=== PATIENT | male | born 1950 | race Caucasian/White ===

== ENCOUNTER 2018-09-28 15:25 | Outpatient (REF) | payer MEDICARE, SELFPAY ==
--- NOTE | 2018-09-28 15:00 | SKI_PTH ---
PATIENT: Tristen Sahu Sr LOC: [facility] U#:[id number] AGE/SX: 68/M ROOM: RE09/28/[address]: Tobin Pinto DO : 1950 BED: DIS: 09/28/2018 SPEC #: [id number] RECD: 09/28/18 18:11 STATUS: MAG REQ #: [id number] NURIS: 09/28/18 15:[address]: Tobin Pinto DEPT: Surgical Specimen RECD BY: Cookie Ford Tissues: 1 - SKIN BIOPSY(SHAVE/PUNCH) Procedures: SKIN LEVEL 4 Comments: [id number]
== END 2018-09-28 15:45 ==
LOC: LBN 15:25
PROVIDERS: PCP Emergency Medicine; Visit Provider Emergency Medicine
DX: D22.5 Melanocytic nevi of trunk (principal)
CPT/HCPCS: 88305

== ENCOUNTER → 2018-12-13 13:32 | Outpatient (BNVA) | payer MEDICARE, SELFPAY | PROVIDERS: PCP Emergency Medicine; Referring Provider Emergency Medicine; Visit Provider Urology | DX: N36.8 Other specified disorders of urethra (principal) | CPT/HCPCS: 99203; 99214 ==

== ENCOUNTER 2019-08-04 22:09 | Emergency (ER) | payer MEDICARE, SELFPAY ==
[2019-08-04 22:15] VITALS: BP 131/69; PULSE 52; RESP 16; TEMP 36.4; O2SAT 100
--- NOTE | 2019-08-04 22:18 | ED.GENADUL_ITS ---
Discharge Plan Disposition Patient Disposition: HOME Condition: Stable Discharge Details Chief Complaint: HeadInjury Clinical Impression: Subarachnoid hemorrhage Primary Care Provider: Tobin Pinto ED Provider: Jaret Buenrostro Home Meds and New Rx's Prescriptions: No Action rosuvastatin [Crestor] 5 mg tablet 5 mg PO DAILY Qty: 90 RF: 3 Medical Decision Making 69 yo male with hx of hld comes in with cc of head laceration. He had a lot of alcohol tonight and tripped going outside and hit his head on the ground from standing and apparently had a several minute loc. He refused ambulance transfer and family brought him here. He arrives ambulatory and caox4 though does have smell of alcohol on his breath he is clinically sober. He denies headache, neck pain, chest jono, sob, and has full rom of the neck with no pain. He has a 4cm laceration to the right posterior scalp, no palpable skull fracture. Suspect fall due to etoh, given loc will obtain ct head. last tetanus within 5 years Pt has small subarachnoid on CT, remains hd stable with gcs of 15. [place]l [place] [facility] [place] Differential Diagnosis Differential Diagnosis: tbi, concussion, head laceration Imaging Data Radiologic Study: Attestation: I personally reviewed and interpreted this imaging study as follows: Imaging: CT Scan Radiologist's impression: Tiny focus of subarachnoid hemorrhage with a right medial frontal lobe sulcus . No evidence of mass effect. Lab Data Lab results reviewed: Yes I reviewed the patient's lab results. HPI General Mode of arrival: ambulatory . Date/Time Provider Initiated Documentation: 08/04/19 22:17 . Limitations to Documentation: no limitations . Information obtained by: patient and family . History of Present Illness 69 year old M presents to the emergency department with the chief complaint of head laceration, described as moderate, Quality is described as aching, and is localized to the head. Patient reports no radiation. and it has been constant. No relieving factors improve symptom(s), No exacerbating factors reported . Patient did receive the following treatments prior to arrival, none Related Data Home Medications Medication Instructions Recorded Confirmed rosuvastatin 5 mg tablet 5 mg PO DAILY #90 tab-cap 08/30/18 08/04/19 Previous Rx's Medication Instructions Recorded rosuvastatin 5 mg tablet 5 mg PO DAILY #90 tab-cap 08/30/18 Allergies Allergy/AdvReac Type Severity Reaction Status Date / Time No Known Allergies Allergy Verified 11/17/18 08:22 Review of Systems All systems reviewed & are unremarkable except as noted in HPI and below Constitutional Constitutional: Denies chills, Denies fever(s) and Denies weakness Cardiovascular Cardiovascular: Denies chest pain and Denies dyspnea Respiratory Respiratory: Denies cough and Denies dyspnea Gastrointestinal Gastrointestinal: Denies abdominal pain, Denies nausea and Denies vomiting Musculoskeletal Musculoskeletal: Denies joint swelling Neurologic Neurologic: Denies weakness [facility] Medical History (Updated 09/28/18 @ 15:04 by Tobin Pinto DO) Lumbago of lumbar region with sciatica (Acute) Surgical History (Updated 08/28/17 @ 13:26 by Lexi Leary) Colonoscopy - MAC (08/21/17) Family History (Updated 09/29/18 @ 10:08 by Saud Nails) Mother No problems noted. Father No problems noted. Sister No problems noted. Sister No problems noted. Brother , 55 Heart disease Maternal Grandfather , 76 No problems noted. Paternal Grandfather , 80 No problems noted. Maternal Grandmother , 90 No problems noted. Paternal Grandmother No problems noted. Son No problems noted. Son No problems noted. Daughter No problems noted. Daughter No problems noted. Social History (Updated 09/29/18 @ 10:06 by Saud Nails) Smoking/Tobacco Use Status: Current-Occasional Tobacco Type: cigarettes Alcohol Intake: current Alcohol Intake frequency: a few times a month Drug use: Occasionally Substance use type: marijuana Household members: spouse Housing: house current occupation: [employer] Pets and animals: Yes Pets and animals: cat(s) and dog(s) Sexually active: Yes Do you think of yourself as: straight/heterosexual Current gender identity: male What is your relationship status?: How often do you talk on the phone with friends or family?: three or more times per week How often do you get together with friends or relatives?: three or more times per week How often do you attend evangelical or nondenominational services?: decline to answer Do you belong to any clubs or organized social groups?: no Panel score (0-1 are the most socially isolated patients): 2 Frequency: daily [place]/Jainism: Spiritism Special angeles needs: No Do you feel safe at home: Yes Do you feel safe in your relationship?: Yes Exam Const General: no acute distress Orientation: alert HENMT Head: no palpable skull fracture Ears: external ears normal General nose exam: external nose normal Mouth: moist mucous membranes Eyes General: appearance normal, both eyes and all related structures Neck Neck: normal visual inspection Resp Effort & Inspection: normal respiratory effort and able to speak in complete se ntences Cardio Rate: regular rate Skin General skin exam: no rashes or lesions noted Neuro General: alert and oriented x3 Extrem General: normal to inspection Psych Mental Status: mental status grossly normal
--- NOTE | 2019-08-04 22:42 | DI.CT_ITS ---
EXAM: CT HEAD WO CLINICAL HISTORY: fall, loc COMPARISON: HEAD WITHOUT CONTRAST from 10/01/2015 FINDINGS: There is normal de la garza-white matter differentiation. There is an area of increased density in the medi al aspect of the right frontal lobe (series 2, image 21). This is suspicious for a small subarachnoi d hemorrhage. No other intracranial hemorrhage is seen. There is no acute midline shift or mass eff ect. Ventricles are intact. The basilar cisterns are patent. There is no evidence of a calvarial f racture. There are findings of chronic sinusitis. No fluid levels are seen in the visualized parana daina sinuses. The mastoid air cells are well pneumatized. There is a scalp hematoma overlying the po sterior right parietal bone. IMPRESSION: 1. Small subarachnoid hemorrhage in the medial aspect of the right frontal lobe. No associated mass effect. 2. Right parietal scalp hematoma.
--- NOTE | 2019-08-04 22:57 | DI.VRAD_ITS ---
Addendum created by Maida Lynn MD on 08/04/2019 11:00:33 PM EST Findings were discussed with MONICA Lara at the 11:00 p.m. EST. Initial report created on 08/04/2019 10:57:32 PM EST PROCEDURE INFORMATION: Exam: CT Head Without Contrast Exam date and time: 08/04/2019 10:40 PM Age: 69 years old Clinical history: Injury or trauma; Fall; Initial encounter TECHNIQUE: Imaging protocol: Computed tomography of the head without contrast. COMPARISON: CT HEAD WITHOUT CONTRAST 10/01/2015 7:13 PM FINDINGS: There is a laceration and contusion of the right parietal scalp. No fracture. Generalized volume loss. There is atherosclerotic calcification in the internal carotid arteries . There is a tiny focus of subarachnoid hemorrhage in a medial right frontal lobe sulcus, image 21 of series 2. Ventricular size is concordant with degree of volume loss. Visualized intraorbital soft tissues are normal. The sinuses are well-aerated. IMPRESSION: Laceration and contusion of the right parietal scalp without fracture. Tiny focus of subarachnoid hemorrhage with a right medial frontal lobe sulcus . No evidence of mass effect. Dictated and Authenticated by: Maida Lynn MD. Ordering:MAURO Ryagoza MD
[2019-08-04 23:20] VITALS: BP 127/72; PULSE 57; RESP 18; O2SAT 96
[2019-08-04 23:33] LABS: Abs Immature Grans 0.05 k/cumm (0.0-0.09); Absolute Basophil Count 0.02 k/cumm (0.0-0.2); Absolute Eosinophil Count 0.02 k/cumm (0.0-0.7); Absolute Lymphocyte Count 1.38 k/cumm (1.2-3.4); Absolute Monocyte Count 0.76 k/cumm (0.11-0.7); Absolute Neutrophil Count 14.35 k/cumm (1.2-6.7); Basophils % 0.1; Eosinophils % 0.1; HGB 16.3 g/dL (13.5-17.5); Immature Grans % 0.3; Lymphocytes % 8.3; Mean Corp. HGB Concentration 32.6 g/dL (32.0-36.0); Mean Corpuscular Hemoglobin 29.2 pg (27.0-33.0); Mean Corpuscular Volume 89.6 fL (80-95); Mean Platelet Volume 10.2 fL (8.0-11.0); Monocytes % 4.6; Neutrophils % 86.6; Platelet Count 215 x1000/uL (130-400); RBC 5.58 m/cumm (4.50-6.00); RBC Distribution Width 14.4 % (11.8-14.1); White Blood Cell Count 16.57 k/cumm (4.4-10.8)
[2019-08-04 23:47] LABS: INR 0.9 (0.9-1.1); Prothrombin Time 9.3 sec (9.3-11.0)
[2019-08-04 23:55] LABS: ALT 41 U/L (16-63); AST 26 U/L (15-37); Albumin 4.4 g/dL (3.4-5.0); Alkaline Phosphatase 55 U/L (46-116); Anion Gap 7.7 mmol/L (3-11); BUN 15 mg/dL (7-18); Bilirubin, Total 0.3 mg/dL (0.2-1.0); CO2 31.3 mmol/L (21.0-32.0); CREATININE 1.08 mg/dL (0.70-1.30); Calcium 8.7 mg/dL (8.5-10.1); Chloride 105 mmol/L (98-107); ETHANOL BLOOD 150.7 mg/dL (<3); Glucose 108 mg/dL (74-106); Potassium 3.9 mmol/L (3.5-5.1); Sodium 144 mmol/L (136-145); Total Protein 7.9 g/dL (6.4-8.2)
--- NOTE | 2019-08-05 00:15 | NUR.NOTE ---
Assumed care of pt, report from SEAMUS Rea. Pt sleeping, even, unlabored resp. Easily arousable to voice. Firm equal hand grasps, answering questions appropriately. Son at bedside.
--- NOTE | 2019-08-05 01:21 | NUR.NOTE ---
Awaiting transport [place] [facility] [place]. Easily arousable to voice.
[2019-08-05 01:31] VITALS: BP 100/69; PULSE 59; RESP 16; O2SAT 98
--- NOTE | 2019-08-05 01:53 | NUR.NOTE ---
[place] SEAMUS [place] [facility] [place] with all belongings.
== END 2019-08-05 01:35 | disposition short-term general hospital (02) ==
PROVIDERS: Emergency Provider Emergency Medicine; PCP Emergency Medicine
DX: S06.6X9A Traumatic subarachnoid hemorrhage with loss of consciousness of unspecified duration, initial encounter (principal); S01.01XA Laceration without foreign body of scalp, initial encounter; F10.120 Alcohol abuse with intoxication, uncomplicated; Y90.6 Blood alcohol level of 120-199 mg/100 ml; R40.2412 Glasgow coma scale score 13-15, at arrival to emergency department
CPT/HCPCS: 12002; 36415; 80053; 86850; 86900; 86901; 99285; 70450; 80320; 83735; 85025; 85610; 85730; L0172

== ENCOUNTER 2019-08-12 03:09 | Outpatient (CLI) | payer MEDICARE, SELFPAY ==
--- NOTE | 2019-08-12 12:50 | DI.CT_ITS ---
EXAM: CT HEAD WO CT HEAD WO CLINICAL HISTORY: subdural hemorrhage, I60.9. subdural hemorrhage, I60.9 TECHNIQUE: Imaging Protocol: Axial computed tomography images with coronal and sagittal reformatted images were created and reviewed COMPARISON: CT HEAD WO from 08/04/2019 FINDINGS: The ventricular system is normal in appearance. No evidence of acute intracranial hemorrhage, mass effect, or midline shift. The orbital structures are unremarkable. The temporal bone structures appear intact. Calvarium: Normal. Visualized Paranasal sinuses/Mastoids: Clear. IMPRESSION: Normal cranial CT. The previously described small focus of presumed subarachnoid hemorrhage para mi dline in right frontal lobe has resolved since prior CT of 08/04/2019. DATA REPOSITORY: All CT scans at this facility are submitted to the National Radiology Data Registry (NRDR) Dose Index Registry (DIR) with the [employer] (ACR). RADIATION OPTIMIZATION: All CT scans at this facility use at least one of these dose optimization te chniques: automated exposure control; mA and/or kV adjustment per patient size (includes targeted exa ms where dose is matched to clinical indication); or iterative reconstruction.
== END 2019-08-12 03:29 ==
PROVIDERS: PCP Emergency Medicine; Visit Provider Emergency Medicine
DX: I60.9 Nontraumatic subarachnoid hemorrhage, unspecified (principal); Z09 Encounter for follow-up examination after completed treatment for conditions other than malignant neoplasm
CPT/HCPCS: 70450

== ENCOUNTER 2019-08-19 05:56 | Emergency (ER) | payer MEDICARE, SELFPAY ==
[2019-08-19] VITALS (16 sets, daily range): BP systolic 110–151; BP diastolic 61–86; PULSE 49–59; RESP 13–23; TEMP 36.6–37.4; O2SAT 94–98
--- NOTE | 2019-08-19 06:07 | ED.GENADUL_ITS ---
Discharge Plan Disposition Patient Disposition: HOME Condition: Improving Discharge Details Chief Complaint: Chest Pain Clinical Impression: Atypical chest pain Primary Care Provider: Tobin Pinto ED Provider: Trudi Ramírez Home Meds and New Rx's Prescriptions: Continued rosuvastatin [Crestor] 5 mg tablet 5 mg PO DAILY Qty: 90 RF: 3 Discharge Instructions Instructions: Chest Pain (ED) Additional Instructions: Call your primary care doctor today to schedule follow-up appointment for reevaluation within the next week and for referral to outpatient stress testing if symptoms persist. Alternate Tylenol and Motrin as needed and directed for pain. You can also continue to try Pepcid, Prilosec or Nexium [id number] as well as Lidoderm patches [id number] as needed. Return to the emergency department if you develop any worsening or concerning symptoms. Discharge Data Discharge Physician: Trudi Ramírez Medical Decision Making <Jaret Buenrostro MD - Last Filed: 08/19/19 07:34> 69 yo male with hx of hld, intermittent smoker, who had an ICH after a fall 2 weeks ago that was managed nonoperatively comes in with constant chest aching and pressure since last night that is nonradiating and no diaphoresis, n/v or abdominal or back pain. Denies any new falls and no headaches. He has no leg swelling, calf pain or pain with deep breaths and no hypoxia or tachycardiaa so doubt PE. Heart score is 3, will send troponin. He apparently had a CT of his chest at [facility] [place] and it showed a thoracic aneurysm, will obtain CT to eval for this vs dissection pt pain improved with asa, labs and imaging negative other than known aneurysm. Will repeat troponin and ecg and if negative feel he can be d/c'd and f/u with pcp within a week. Pt will be signed out to Dr. Ramírez pending repeat troponin Differential Diagnosis Differential Diagnosis: acs, chest wall pain, dissection Medical Records Medical records reviewed: Yes I reviewed the patient's medical records. Lab Data Lab results reviewed: Yes I reviewed the patient's lab results. ECG Data Attestation: I personally reviewed and interpreted this ECG (s) as follows: Prior ECG tracings: not available for review Interpretation: sinus bradycardia, rate of 54, pr 170, no acute st t wave ischemic findings <Trudi J Bugbee, DO - Last Filed: 08/19/19 12:47> 0800 -- Please see Dr. Buenrostro's note for initial presentation and plan. Pt is a 69yo M w/ a h/o hyperlipidemia who presents for substernal chest pain that awoke him for sleep at 1030pm last night. Pain has been intermittent, 6/10 at its worst, worse with deep breath and currently 4/10. Also admits to some dizziness which he has had intermittently since his head injury while intoxicated that caused small subarachnoid hemorrhage 2 weeks ago that has resolved on ct head 1 week ago. He was transferred to [facility] at that time and also had a CT chest which incidentally noted a 4cm thoracic aneursym. Labs and imaging reviewed. White blood cell count 14. Troponin negative. CT chest notes 3.9 cm stable thoracic aneurysm but no evidence of dissection. EKG noted a rate of 54, sinus with no acute ST ischemic changes. Case endorsed to follow-up on repeat troponin and EKG at 9:10 AM this morning. Per Dr. Buenrostro, if negative feels that patient is appropriate for discharge to home. Upon my assessment, patient still complaining of anterior chest pain. His chest is nontender. He has significant right upper quadrant tenderness but with normal liver panel. Repeat EKG unremarkable. Will obtain a gallbladder ultrasound. 1230 --delay in disposition due to critical patient in ED. Repeat troponin and EKG negative. Patient additionally given Pepcid, GI cocktail, Toradol and Lidoderm patches and has complete relief of pain. Patient is requesting to go home. Patient advised to avoid possible triggers of heartburn or GERD and continue to alternate Tylenol and Motrin and Lidoderm patches as needed. He was also advised to take [id number] Nexium, Pepcid or Prilosec as directed for the next 2 weeks. He was advised to call his primary care doctor today to schedule a follow-up appointment for reevaluation within the next week and for referral for outpatient stress testing if symptoms persist or worsen. Usual and customary return precautions given prior to discharge. Medical Records Medical records reviewed: Yes I reviewed the patient's medical records. Imaging Data Radiologic Study: Radiologist's impression: CT THORAX CTA CLINICAL HISTORY: chest pain known thoracic aneurysm TECHNIQUE: The exam was performed according to the usual protocol. COMPARISON: CTA BRAIN from 10/19/2015 FINDINGS: CT angiography of the chest was bolus infusion of 100 cc of Omnipaque 350. Images obtained through the upper abdomen show small hiatal hernia and unremarkable appearance of visualized portions of liver, spleen, pancreas, adrenals and left kidney. The pulmonary arteries are not well opacified. No central embolus identified. Thoracic aorta is ectatic in its ascending portion at 40 millimeters with no evidence of dissection or other abnormality. Major branch vessels appear intact. No mediastinal or hilar adenopathy. Lungs are clear. No pleural effusion or pneumothorax. Tracheobronchial tree appears intact. 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 No central pulmonary embolus identified, peripheral pulmonary arteries not well visualized due to under opacification. US ABDOMEN LIMITED CLINICAL HISTORY: RUQ abd pain, tenderness, r/o acute cholecystitis TECHNIQUE: Ultrasound performed using standard protocol. COMPARISON: No exams were available for comparison FINDINGS: Visualized liver parenchyma is normal in appearance. No evidence of cholelithiasis or biliary dilatation. Negative sonographic Caceres sign. Pancreas appears intact as visualized. Right kidney unremarkable in appearance with no hydronephrosis or nephrolithiasis. Abdominal aorta ectatic at 29 millimeters in the superior-most portion, mid to distal abdominal aorta nonvisualized. IVC of grossly normal diameter is seen. IMPRESSION: No evidence of cholelithiasis or cholecystitis Lab Data Lab results reviewed: Yes I reviewed the patient's lab results. Labs: Laboratory Tests Range/Units 08/19/19 08/19/19 08/19/19 06:10 06:10 06:10 WBC (4.4-10.8) k/cumm 14.34 H RBC (4.50-6.00) m/cumm 5.24 Hgb (13.5-17.5) g/dL 15.5 Hct (40.0-50.0) % 47.4 MCV (80-95) fL 90.5 MCH (27.0-33.0) pg 29.6 MCHC (32.0-36.0) g/dL 32.7 RDW (11.8-14.1) % 14.3 H Plt Count (130-400) x1000/uL 272 MPV (8.0-11.0) fL 10.3 Immature Gran % 0.6 Neutrophils % 78.0 Lymphocytes % 13.8 Monocytes % 6.4 Eosinophils % 1.0 Basophils % 0.2 Absolute Neutrophils (1.2-6.7) k/cumm 11.19 H Absolute Lymphocytes (1.2-3.4) k/cumm 1.98 Absolute Monocytes (0.11-0.7) k/cumm 0.92 H Absolute Eosinophils (0.0-0.7) k/cumm 0.14 Absolute Basophils (0.0-0.2) k/cumm 0.03 PT (9.3-11.0) sec 9.3 INR (0.9-1.1) 0.9 APTT (21.0-31.4) sec 24.5 Sodium (136-145) mmol/L 144 Potassium (3.5-5.1) mmol/L 4.5 Chloride (98-107) mmol/L 105 Carbon Dioxide (21.0-32.0) mmol/L 30.0 Anion Gap (3-11) mmol/L 9.0 BUN (7-18) mg/dL 18 Creatinine (0.70-1.30) mg/dL 1.01 Estimated GFR/1.73 m2 (mL/min/1.73m2) >= 60.00 Glucose (74-106) mg/dL 98 Calcium (8.5-10.1) mg/dL 8.6 Magnesium (1.8-2.4) mg/dL 1.8 Total Bilirubin (0.2-1.0) mg/dL 0.3 AST (15-37) U/L 31 ALT (16-63) U/L 58 Alkaline Phosphatase (46-116) U/L 60 Troponin I (<0.06) ng/Ml < 0.05 NT-Pro-B Natriuret Pep (<300) pg/mL 57 Total Protein (6.4-8.2) g/dL 7.4 Albumin (3.4-5.0) g/dL 3.6 Lipase (73-393) U/L 95 Range/Units 08/19/ 09:00 WBC (4.4-10.8) k/cumm RBC (4.50-6.00) m/cumm Hgb (13.5-17.5) g/dL Hct (40.0-50.0) % MCV (80-95) fL MCH (27.0-33.0) pg MCHC (32.0-36.0) g/dL RDW (11.8-14.1) % Plt Count (130-400) x1000/uL MPV (8.0-11.0) fL Immature Gran % Neutrophils % Lymphocytes % Monocytes % Eosinophils % Basophils % Absolute Neutrophils (1.2-6.7) k/cumm Absolute Lymphocytes (1.2-3.4) k/cumm Absolute Monocytes (0.11-0.7) k/cumm Absolute Eosinophils (0.0-0.7) k/cumm Absolute Basophils (0.0-0.2) k/cumm PT (9.3-11.0) sec INR (0.9-1.1) APTT (21.0-31.4) sec Sodium (136-145) mmol/L Potassium (3.5-5.1) mmol/L Chloride (98-107) mmol/L Carbon Dioxide (21.0-32.0) mmol/L Anion Gap (3-11) mmol/L BUN (7-18) mg/dL Creatinine (0.70-1.30) mg/dL Estimated GFR/1.73 m2 (mL/min/1.73m2) Glucose (74-106) mg/dL Calcium (8.5-10.1) mg/dL Magnesium (1.8-2.4) mg/dL Total Bilirubin (0.2-1.0) mg/dL AST (15-37) U/L ALT (16-63) U/L Alkaline Phosphatase (46-116) U/L Troponin I (<0.06) ng/Ml < 0.05 NT-Pro-B Natriuret Pep (<300) pg/mL Total Protein (6.4-8.2) g/dL Albumin (3.4-5.0) g/dL Lipase (73-393) U/L ECG Data Attestation: I personally reviewed and interpreted this ECG (s) as follows: Interpretation: #2 -- Rate of 55, sinus, no acute ST elevation or depression. HI 172. QTc 390. QRS 108. HPI <Jaret Buenrostro MD - Last Filed: 08/19/19 07:34> General Mode of arrival: ambulatory . Date/Time Provider Initiated Documentation: 08/19/19 05:59 . Limitations to Documentation: no limitations . Information obtained by: patient . History of Present Illness 69 year old M presents to the emergency department with the chief complaint of chest pain, described as moderate, Quality is described as aching, and is localized to the chest. and it has been constant. No relieving factors improve symptom(s), No exacerbating factors reported . Related Data Home Medications Medication Instructions Recorded Confirmed rosuvastatin 5 mg tablet 5 mg PO DAILY #90 tab-cap 08/30/18 08/19/19 Previous Rx's Medication Instructions Recorded rosuvastatin 5 mg tablet 5 mg PO DAILY #90 tab-cap 08/30/18 Allergies Allergy/AdvReac Type Severity Reaction Status Date / Time No Known Allergies Allergy Verified 08/09/19 11:22 General DAYANA: 3 Review of Systems <Jaret Buenrostro MD - Last Filed: 08/19/19 07:34> All systems reviewed & are unremarkable except as noted in HPI and below Constitutional Constitutional: Denies chills, Denies fever(s) and Denies weakness Eyes Eyes: Denies loss of vision ENT Ears, Nose, Mouth, and Throat: Denies change in voice Cardiovascular Cardiovascular: Denies chest pain and Denies dyspnea Respiratory Respiratory: Denies cough and Denies dyspnea Gastrointestinal Gastrointestinal: Denies abdominal pain, Denies nausea and Denies vomiting Genitourinary Genitourinary: Denies dysuria Musculoskeletal Musculoskeletal: Denies joint swelling Integumentary/Breasts Skin/Breast: Denies rash Neurologic Neurologic: Denies loss of vision and Denies weakness Psychiatric Psychiatric: Denies depression Endocrine Endocrine: Denies cold intolerance and Denies heat intolerance Allergic/Immunologic Allergic/Immunologic: Denies urticaria PFSH <Jaret Buenrostro MD - Last Filed: 08/19/19 07:34> Medical History (Updated 09/28/18 @ 15:04 by Tobin Pinto DO) Lumbago of lumbar region with sciatica (Acute) Surgical History (Updated 08/28/17 @ 13:26 by Lexi Leary) Colonoscopy - MAC (08/21/17) Family History (Updated 09/29/18 @ 10:08 by Saud Nails) Mother No problems noted. Father No problems noted. Sister No problems noted. Sister No problems noted. Brother , 55 Heart disease Maternal Grandfather , 76 No problems noted. Paternal Grandfather , 80 No problems noted. Maternal Grandmother , 90 No problems noted. Paternal Grandmother No problems noted. Son No problems noted. Son No problems noted. Daughter No problems noted. Daughter No problems noted. Social History (Updated 09/29/18 @ 10:06 by Saud Nails) Smoking/Tobacco Use Status: Current-Occasional Tobacco Type: cigarettes Alcohol Intake: current Alcohol Intake frequency: a few times a month Drug use: Occasionally Substance use type: marijuana Household members: spouse Housing: house current occupation: [employer] Pets and animals: Yes Pets and animals: cat(s) and dog(s) Sexually active: Yes Do you think of yourself as: straight/heterosexual Current gender identity: male What is your relationship status?: How often do you talk on the phone with friends or family?: three or more times per week How often do you get together with friends or relatives?: three or more times per week How often do you attend latter-day or restorationism services?: decline to answer Do you belong to any clubs or organized social groups?: no Panel score (0-1 are the most socially isolated patients): 2 Frequency: daily [place]/Judaism: Shinto Special angeles needs: No Do you feel safe at home: Yes Do you feel safe in your relationship?: Yes Exam <Jaret Buenrostro MD - Last Filed: 08/19/19 07:34> Const General: no acute distress Orientation: alert [facility] Head: normal to inspection Ears: external ears normal General nose exam: external nose normal Mouth: moist mucous membranes Eyes General: appearance normal, both eyes and all related structures Neck Neck: normal visual inspection Resp Effort & Inspection: normal respiratory effort and able to speak in complete sentences Cardio Rate: regular rate Skin General skin exam: no rashes or lesions noted Neuro General: alert and oriented x3 Extrem General: normal to inspection Psych Mental Status: mental status grossly normal Sign Out <Jaret Buenrostro MD - Last Filed: 08/19/19 07:34> Sign Out Data: Sign Out Comment: follow up on repeat troponin and ecg Last updated by Jaret Buenrostro MD at 08/19/19 07:35
[2019-08-19] MEDS: Aspirin 81 MG CHEW 324 MG CH (06:20)
[2019-08-19] MEDS: Omnipaque 350 MG/ML 100 ML BTL IJ (06:31)
--- NOTE | 2019-08-19 06:35 | DI.CT_ITS ---
EXAM: CT THORAX CTA CLINICAL HISTORY: chest pain known thoracic aneurysm TECHNIQUE: The exam was performed according to the usual protocol. COMPARISON: CTA BRAIN from 10/19/2015 FINDINGS: CT angiography of the chest was bolus infusion of 100 cc of Omnipaque 350. Images obtained through t he upper abdomen show small hiatal hernia and unremarkable appearance of visualized portions of liver , spleen, pancreas, adrenals and left kidney. The pulmonary arteries are not well opacified. No central embolus identified. Thoracic aorta is ect atic in its ascending portion at 40 millimeters with no evidence of dissection or other abnormality. Major branch vessels appear intact. No mediastinal or hilar adenopathy. Lungs are clear. No pleural effusion or pneumothorax. Tracheob ronchial tree appears intact. 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 No central pulmonary embolus identified, peripheral pu lmonary arteries not well visualized due to under opacification
[2019-08-19 06:39] LABS: INR 0.9 (0.9-1.1); PTT Activated 24.5 sec (21.0-31.4); Prothrombin Time 9.3 sec (9.3-11.0)
[2019-08-19 06:46] LABS: ALT 58 U/L (16-63); AST 31 U/L (15-37); Albumin 3.6 g/dL (3.4-5.0); Alkaline Phosphatase 60 U/L (46-116); BUN 18 mg/dL (7-18); Bilirubin, Total 0.3 mg/dL (0.2-1.0); CREATININE 1.01 mg/dL (0.70-1.30); Calcium 8.6 mg/dL (8.5-10.1); Chloride 105 mmol/L (98-107); Glucose 98 mg/dL (74-106); Lipase 95 U/L (73-393); Magnesium 1.8 mg/dL (1.8-2.4); NT-proBNP 57 pg/mL (<300); Potassium 4.5 mmol/L (3.5-5.1); Sodium 144 mmol/L (136-145); Total Protein 7.4 g/dL (6.4-8.2); Troponin I < 0.05 ng/Ml (<0.06)
--- NOTE | 2019-08-19 07:10 | DI.VRAD_ITS ---
PROCEDURE INFORMATION: Exam: CT Angiography Chest With Contrast Exam date and time: 08/19/2019 6:32 AM Age: 69 years old Clinical indication: Chest pain; Type not specified; Patient HX: Known thoracic aneurysm TECHNIQUE: Imaging protocol: Computed tomographic angiography of the chest with intravenous contrast. 3D rendering: MIP and/or 3D reconstructed images were created by the technologist. Radiation optimization: All CT scans at this facility use at least one of these dose optimization techniques: automated exposure control; mA and/or kV adjustment per patient size (includes targeted exams where dose is matched to clinical indication); or iterative reconstruction. Contrast material: [id number]; Contrast volume: 100 ml; Contrast route: IV RT AC 20G; COMPARISON: CR CHEST 2 VIEWS PA,LAT 10/19/2015 1:41 PM FINDINGS: Pulmonary arteries: No central emboli seen. Distal branches are not well opacified. Aorta: Ascending aorta is aneurysmal measuring 3.9 cm. This tapers to normal caliber at the level of the arch. Descending thoracic aorta is normal in caliber. No dissection seen however assessment of the aortic root is limited by cardiac motion artifact. No obvious leak. Lungs: Dependent atelectasis. Pleural space: Unremarkable. No pneumothorax. No pleural effusion. Heart: Coronary artery calcifications. Heart size is normal. Mediastinum: Small hiatus hernia. Lymph nodes: No pathologic sized adenopathy. Bones/joints: Unremarkable. No acute fracture. Soft tissues: Unremarkable. IMPRESSION: 3.9 cm ascending aortic aneurysm. Assessment assessment of the aortic root is limited by cardiac motion. No obvious dissection or leak seen. Small hiatus hernia. No central pulmonary emboli seen. Distal branches are not well opacified. Dictated and Authenticated by: Maida Lynn MD. Ordering:MAURO Raygoza MD
[2019-08-19 08:34] LABS: Abs Immature Grans 0.08 k/cumm (0.0-0.09); Absolute Basophil Count 0.03 k/cumm (0.0-0.2); Absolute Eosinophil Count 0.14 k/cumm (0.0-0.7); Absolute Lymphocyte Count 1.98 k/cumm (1.2-3.4); Absolute Monocyte Count 0.92 k/cumm (0.11-0.7); Absolute Neutrophil Count 11.19 k/cumm (1.2-6.7); Basophils % 0.2; HCT 47.4 % (40.0-50.0); HGB 15.5 g/dL (13.5-17.5); Immature Grans % 0.6; Lymphocytes % 13.8; Mean Corp. HGB Concentration 32.7 g/dL (32.0-36.0); Mean Corpuscular Hemoglobin 29.6 pg (27.0-33.0); Mean Corpuscular Volume 90.5 fL (80-95); Mean Platelet Volume 10.3 fL (8.0-11.0); Monocytes % 6.4; Platelet Count 272 x1000/uL (130-400); RBC 5.24 m/cumm (4.50-6.00); RBC Distribution Width 14.3 % (11.8-14.1); White Blood Cell Count 14.34 k/cumm (4.4-10.8)
[2019-08-19 09:29] LABS: Troponin I < 0.05 ng/Ml (<0.06)
--- NOTE | 2019-08-19 09:42 | DI.US_ITS ---
EXAM: US ABDOMEN LIMITED CLINICAL HISTORY: RUQ abd pain, tenderness, r/o acute cholecystitis TECHNIQUE: Ultrasound performed using standard protocol. COMPARISON: No exams were available for comparison FINDINGS: Visualized liver parenchyma is normal in appearance. No evidence of cholelithiasis or biliary dilata tion. Negative sonographic Caceres sign. Pancreas appears intact as visualized. Right kidney unremarkable in appearance with no hydronephrosi s or nephrolithiasis. Abdominal aorta ectatic at 29 millimeters in the superior-most portion, mid to distal abdominal aorta nonvisualized. IVC of grossly normal diameter is seen. IMPRESSION: No evidence of cholelithiasis or cholecystitis
[2019-08-19] MEDS: FAMOTIDINE 20 MG/50 ML BAG 200 MG IVPB (09:58)
[2019-08-19] MEDS: Ketorolac 30 MG/ML VIAL IVP (10:38)
[2019-08-19] MEDS: Lidocaine 5% Patch 1 PATCH TP (10:38)
--- NOTE | 2019-08-20 09:33 | NUR.NOTE ---
Nursing Note: Faxed referral to PCP for follow up. Rosangela Posadas.
== END 2019-08-19 12:44 | disposition home or self-care (01) ==
PROVIDERS: Emergency Medicine; Emergency Provider Physician Assistant; PCP Emergency Medicine
DX: R07.89 Other chest pain (principal); R10.11 Right upper quadrant pain; I71.2 Thoracic aortic aneurysm, without rupture
CPT/HCPCS: 36415; 71275; 80053; 83690; 93005; 96365; 96375; 99285; 76705; 83735; 83880; 84484; 85025; 85610; 85730; 93010; J1885; J3490

== ENCOUNTER 2019-08-23 08:42 | Outpatient (CLI) | payer MEDICARE, SELFPAY ==
[2019-08-23 10:35] LABS: Abs Immature Grans 0.04 k/cumm (0.0-0.09); Absolute Basophil Count 0.03 k/cumm (0.0-0.2); Absolute Eosinophil Count 0.14 k/cumm (0.0-0.7); Absolute Lymphocyte Count 1.67 k/cumm (1.2-3.4); Absolute Monocyte Count 0.68 k/cumm (0.11-0.7); Absolute Neutrophil Count 6.19 k/cumm (1.2-6.7); Basophils % 0.3; Eosinophils % 1.6; HCT 44.5 % (40.0-50.0); HGB 14.4 g/dL (13.5-17.5); Immature Grans % 0.5; Lymphocytes % 19.1; Mean Corp. HGB Concentration 32.4 g/dL (32.0-36.0); Mean Corpuscular Hemoglobin 29.4 pg (27.0-33.0); Mean Platelet Volume 10.2 fL (8.0-11.0); Monocytes % 7.8; Neutrophils % 70.7; Platelet Count 283 x1000/uL (130-400); RBC 4.89 m/cumm (4.50-6.00); RBC Distribution Width 14.5 % (11.8-14.1); White Blood Cell Count 8.75 k/cumm (4.4-10.8)
== END 2019-08-23 09:02 ==
PROVIDERS: PCP Emergency Medicine; Visit Provider Emergency Medicine
DX: I71.2 Thoracic aortic aneurysm, without rupture (principal)
CPT/HCPCS: 36415; 85025

== ENCOUNTER 2019-08-29 00:58 | Outpatient (CLI) | payer MEDICARE, SELFPAY ==
--- NOTE | 2019-08-29 08:29 | ETT_ITS ---
APPROVED REPORT Exam: Exercise Treadmill Patient Location: Out-Patient Room/Bed: Stress Nurse: Ofelia Browning RN BMI: 27.16 Baseline Rhythm: Sinus bradycardia Indications: Episode of right sided chest pain. Medical History Medical History: Angina, , Hyperlipidemia, Smoking Cardiac Medications: Rosuvastatin/ Crestor Allergies: No known drug allergies Cardiac Risk Factors: Hyperlipidemia, FHX of CAD, Smoking Exercise History: Physically active Lung Sounds: Clear to auscultation Heart Sounds: Regular Stress Test Details Test: Exercise stress testing was performed using a Emir protocol. Rest Stress HR Max Heart Rate (APMHR): 153 bpm Resting HR Supine: 50 bpm Target HR (85% APMHR): 130 bpm Resting HR Standin bpm Max HR Achieved: 141 bpm % of APMHR: 92 HR response to stress: Normal HR response to stress BP Resting BP Supine: 120/78 mmHg Resting BP Standin/80 mmHg Max BP: 184/78 mmHg Recovery BP: 110/74 mmHg BP response to stress: Normal blood pressure response to stress. ECG Resting ECG: Sinus Bradycardia ST Change: Flattened T waves in precrodial leads Ectopy: none Stress ECG: Sinus Tachycardia Arrhythmia: Rare PVCs. Recovery ECG: Sinus Bradycardia Recovery ST Change: Inverted T-waves in precordial leads. Time of Change: 0801 Recovery Arrhythmia: None Clinical Time of Stop for Emir: 0916 Reason for Termination: Fatigue Stress Symptoms: General Fatigue Exercise duration: 9 min16 sec Highest Stage Achieved: Stage 3: 3.4 mph at 14% grade. Exercise capacity: 10.62 METs Functional Capacity: Above average capacity Scale: Active Angina Score: None Stress ECG Conclusion 1. The patient exercised for a total of 9 and 16 seconds (10 METS) 2. Rate-pressure product was 25,000. 3. Patient had flattened T waves on baseline ECG which did not appreciably change with exercise. 4. Patient had no symptoms suggestive of ischemia. 5. The Rodriguez Score (8) estimates an annual cardiovascular mortality of 0% and a five year survival of 95%. Using the Rodriguez Score there is a low probability of any angiographic coronary disease. Protocol Used: Emir Protocol Stress Test Summary STAGE Time (mins) Speed (mph) Grade (%) HR BP SYMPTOMS METS Supine 50 120/78 Standing 47 140/80 1 3 1.7 10 106 160/82 4.6 2 6 2.5 12 112 168/80 7 3 9 3.4 14 135 10.2 1 min recovery 110 184/78 3 min recovery 68 152/70 6 min recovery 61 122/78 9 min recovery 60 110/74
== END 2019-08-29 01:18 ==
PROVIDERS: PCP Emergency Medicine; Visit Provider Emergency Medicine
DX: R07.9 Chest pain, unspecified (principal); R42 Dizziness and giddiness; E78.5 Hyperlipidemia, unspecified; F17.220 Nicotine dependence, chewing tobacco, uncomplicated; Z82.49 Family history of ischemic heart disease and other diseases of the circulatory system
CPT/HCPCS: 93016; 93018; 93017

== ENCOUNTER 2019-10-03 08:45 | Outpatient (CLI) | payer MEDICARE, SELFPAY | END 2019-10-03 09:05 | PROVIDERS: PCP Emergency Medicine; Visit Provider Internal Medicine Cardiovascular Disease | DX: I71.2 Thoracic aortic aneurysm, without rupture (principal); E78.5 Hyperlipidemia, unspecified | CPT/HCPCS: 99204; 99215; 93005; 93010 ==

== ENCOUNTER 2019-10-21 04:16 | Outpatient (CLI) | payer MEDICARE, SELFPAY ==
--- NOTE | 2019-10-21 08:38 | DI.US_ITS ---
APPROVED REPORT EXAM: Comprehensive 2D, Doppler, and color-flow Echocardiogram Patient Location: Out-Patient Prosthetist: Amber Herrera RDCS (AE) Indications: Thoracic Aortic Aneurysm Conclusion Left Ventricle : The left ventricle is normal size. The left ventricular ejection fraction is within the normal range. Left ventricular systolic function is normal. There is normal left ventricular wal l thickness. There is normal LV segmental wall motion. The left ventricular diastolic function is no rmal. LVEF is 60-64%. Right Ventricle : The right ventricle is normal size. The right ventricular systolic function is norm al. Atria : The left atrium size is normal. The right atrium size is normal. Aortic Valve : Aortic valve is trileaflet. No aortic regurgitation is present. There is no aortic ruben vular stenosis. Mitral Valve : The mitral valve is normal in structure. Trace mitral regurgitation. No evidence of mi tral valve stenosis. Great Vessels : The ascending aorta is mildly dilated (4.2cm). The aortic root is normal in size. T he IVC is normal in size and collapses >50% with inspiration. There is no prior echocardiogram available for comparison. Wall motion Left Ventricle The left ventricle is normal size. The left ventricular ejection fraction is within the normal range. Left ventricular systolic function is normal. There is normal left ventricular wall thickness. There is normal LV segmental wall motion. The left ventricular diastolic function is normal. LVEF is 60-64 %. Right Ventricle The right ventricle is normal size. The right ventricular systolic function is normal. Atria The left atrium size is normal. The right atrium size is normal. Aortic Valve Aortic valve is trileaflet. There is no aortic valvular stenosis. No aortic regurgitation is present. Mitral Valve The mitral valve is normal in structure. No evidence of mitral valve stenosis. Trace mitral regurgita tion. Tricuspid Valve The tricuspid valve is normal in structure. There is no tricuspid valve stenosis. Trace tricuspid reg urgitation. Pulmonic Valve The pulmonary valve is normal in structure. There is no pulmonic valvular stenosis. There is no pulmo nathaniel valvular regurgitation. Great Vessels The aortic root is normal in size. The ascending aorta is mildly dilated (4.2cm). The IVC is normal i n size and collapses >50% with inspiration. Pericardium There is no pericardial effusion. 2D Dimensions IVSD d PLAX 0.91 cm M: 0.6-1.2 LV Vol A2C d MOD 92.6 mL LVPW d PLAX 1.02 cm M: 0.6 - 1.2 LV Vol A4C d MOD 121.1 mL LVID d PLAX 5.17 cm M: 4.2 - 5.8 LA vol/ BSA A2C s A-L 27.0 mL/m2 LVDs 4.00 cm M: 2.5 - 4.0 LA vol/ BSA A4C s A-L 18.2 mL/m2 Ao Root d 3.55 cm M: 3.1 - 3.7 LA Vol/ BSA Biplane s A-L 22.6 mL/m2 RA Area A4C 14.46 cm2 LA Area A4C s MOD 14.27 cm2 RA Vol/ BSA A4C s A-L 21.2 mL/m2 LA Area A2C s MOD 17.01 cm2 Ao Asc Diam d 4.22 cm M: 2.6 - 3.4 LV EF A4C MOD 62.6 % LV EF Teichholz 43.7 % LV EF A2C MOD 63.9 % LVEF (Santiago's) 61.18 % M: 52 - 72 LV EF Biplane MOD 61.2 % LV Volume 79.46 mL M: 62 - 150 LV Volume Index 39.73 mL/m2 M: 34 - 74 LV Vol Biplane MOD 105.9 mL FS 21.75 % LV Diastology MV E' medial 0.059 (>0.07 m/s) E/A Ratio 1.1 LV E/e MED 10.25 (<14) MV E Vmax 0.61 (0.4-1.3 m/s) MV E' lateral 0.083 (>0.1 m/s) MV A Vmax 0.55 (0.4-1.3 m/s) LV E/e LAT 7.35 (<14) MV E/A Ratio 1.06 MV E/E' medial 10.27 MV E/E' lateral 7.35 Aortic Valve LVOT Vmax 0.92 m/s LVOT Mean Elbert. 0.60 m/s LVOT Peak Grad 3.4 mmHg LVOT Mean Grad 1.7 mmHg LVOT VTI 0.226 m AoV Vmax 1.33 (0.5-1.3 m/s) Velocity Ratio 0.69 AoV Mean Elbert. 0.89 m/s AoV Peak Grad 7.0 mmHg AoV Mean Grad 3.7 (<5 mmHg) AoV VTI 0.329 (0.18-0.25 m) Mitral Valve MV DT 224 (160-240 msec) MV PHT 65 msec MV Area PHT 3.39 cm2 Pulmonary Valve PV Vmax 1.10 (0.5-1.5 m/s) PV Peak Grad 4.8 mmHg PV Mean Grad 2.4 mmHg PV VTI 0.232 m Tricuspid Valve TR Peak Grad 24.4 mmHg TR Vmax 2.47 m/s
== END 2019-10-21 04:36 ==
PROVIDERS: PCP Emergency Medicine; Visit Provider Internal Medicine Cardiovascular Disease
DX: I71.2 Thoracic aortic aneurysm, without rupture (principal)
CPT/HCPCS: 93306

== ENCOUNTER 2020-02-23 00:43 | Outpatient (CLI) | payer MEDICARE, SELFPAY ==
--- NOTE | 2020-02-23 12:30 | DI.RAD_ITS ---
EXAM: XR SHOULDER LT COMPLETE 2+V CLINICAL HISTORY: left shoulder pain, M25.512. TECHNIQUE: 2D digital imaging was performed. COMPARISON: No exams were available for comparison FINDINGS: There are mild degenerative changes of the left shoulder characterized by a small osteophyte arising from the humeral head and hypertrophic changes of the acromioclavicular joint. No acute fracture or dislocation is seen. There is a well corticated osseous density adjacent to the humeral head which m ay reflect calcific tendinitis. The soft tissues are otherwise unremarkable. No suspicious lytic or sclerotic lesions are seen. IMPRESSION: Mild degenerative changes of the left shoulder. DATA REPOSITORY: RADIATION DOSE DELIVERED:
== END 2020-02-23 01:03 ==
PROVIDERS: PCP Emergency Medicine; Visit Provider Emergency Medicine
DX: M25.512 Pain in left shoulder (principal); M19.012 Primary osteoarthritis, left shoulder
CPT/HCPCS: 73030

== ENCOUNTER → 2020-04-02 07:58 | Outpatient (BNVA) | payer MEDICARE, SELFPAY | PROVIDERS: PCP Emergency Medicine; Referring Provider Emergency Medicine; Visit Provider Student in an Organized Health Care Education/Training Program | DX: S46.012A Strain of muscle(s) and tendon(s) of the rotator cuff of left shoulder, initial encounter (principal); S43.432A Superior glenoid labrum lesion of left shoulder, initial encounter; W11.XXXA Fall on and from ladder, initial encounter; M75.52 Bursitis of left shoulder; M75.42 Impingement syndrome of left shoulder | CPT/HCPCS: 99204; 99215 ==

== ENCOUNTER 2020-04-06 01:47 | Outpatient (CLI) | payer MEDICARE, SELFPAY ==
--- NOTE | 2020-04-06 08:35 | DI.MRI_ITS ---
EXAM: MR UPPER JOINT LT WO CLINICAL HISTORY: Traumatic rotator cuff tear,slap lesion, pain,s46.012a,s43.432a. TECHNIQUE: Multiplanar multisequence MRI was performed. COMPARISON: CR XR SHOULDER LT COMPLETE 2+V from 02/23/2020 FINDINGS: BONES: There is no fracture or contusion pattern. JOINTS: Moderately severe degenerative changes are seen at the acromioclavicular joint characterized by subchondral edema and cysts and hypertrophic spurring. Mild spurring is seen at the humeral head. TENDONS: Supraspinatus: There is a full-thickness tear of the supraspinatus tendon anteriorly at its insertion site. Infraspinatus: Hyperintense signal is seen on the articular surface of the infraspinatus tendon suspi cious for partial tear. Subscapularis: There is a partial tear of the subscapularis tendon. Teres Minor: Unremarkable. Biceps and [place]: There is medial subluxation of the biceps tendon. MUSCLES: Unremarkable. GLENOID LABRUM: Unremarkable on this noncontrast examination. SOFT TISSUES: Unremarkable. LIGAMENTS: The coracoclavicular ligament appears intact. OTHER: There is fluid seen in the subacromial subdeltoid bursa. IMPRESSION: 1. Full-thickness tear of the supraspinatus tendon. 2. Partial tear of the subscapularis and probable partial tear of the infraspinatus tendons. 3. Medial subluxation of the biceps tendon. 4. Degenerative changes of the shoulder particularly the acromioclavicular joint. DATA REPOSITORY:
== END 2020-04-06 02:07 ==
PROVIDERS: PCP Emergency Medicine; Visit Provider Student in an Organized Health Care Education/Training Program
DX: S46.012A Strain of muscle(s) and tendon(s) of the rotator cuff of left shoulder, initial encounter (principal); M19.012 Primary osteoarthritis, left shoulder; S43.392A Subluxation of other parts of left shoulder girdle, initial encounter
CPT/HCPCS: 73221

== ENCOUNTER → 2020-04-11 11:14 | Outpatient (BNVA) | payer MEDICARE, SELFPAY | PROVIDERS: PCP Emergency Medicine; Referring Provider Emergency Medicine; Visit Provider Student in an Organized Health Care Education/Training Program | DX: S46.012D Strain of muscle(s) and tendon(s) of the rotator cuff of left shoulder, subsequent encounter (principal); S43.432D Superior glenoid labrum lesion of left shoulder, subsequent encounter; X58.XXXD Exposure to other specified factors, subsequent encounter; M75.42 Impingement syndrome of left shoulder; M75.52 Bursitis of left shoulder | CPT/HCPCS: 99214 ==

== ENCOUNTER 2020-04-16 07:17 | Outpatient (CLI) | payer MEDICARE, SELFPAY ==
[2020-04-18 00:09] LABS: COVID-19 RT-PCR Result NEGATIVE (Negative)
== END 2020-04-16 07:37 ==
PROVIDERS: PCP Emergency Medicine; Visit Provider Student in an Organized Health Care Education/Training Program
DX: Z11.59 Encounter for screening for other viral diseases (principal); Z01.818 Encounter for other preprocedural examination
CPT/HCPCS: U0003

== ENCOUNTER 2020-04-19 07:57 | Day surgery (SDC) | payer MEDICARE, SELFPAY ==
[2020-04-19] VITALS (8 sets, daily range): BP systolic 119–137; BP diastolic 61–77; PULSE 42–56; RESP 13–18; TEMP 36.1–36.5; O2SAT 95–98
[2020-04-19] MEDS: Lactated Ringers 1,000 ML 100 ML IV (08:48)
[2020-04-19] MEDS: ceFAZolin 2 GM/50 ML BAG IVPB (09:25)
[2020-04-19] MEDS: EPINEPHrine 30 MG/30 ML VIAL (10:26)
--- NOTE | 2020-04-19 13:01 | PDOC.DSDIS_ITS ---
Discharge Plan Disposition Patient Disposition: HOME Condition: Stable Discharge Details Reason For Visit: Left shoulder surgery Attending Provider: Mateusz Macias Primary Care Provider: Tobin Pinto Home Meds and New Rx's Prescriptions: New naproxen 250 mg tablet 250 - 500 mg PO BID PRN (Reason: Moderate pain or swelling) Qty: 60 RF: 0 aspirin 81 mg tablet,delayed release (DR/EC) 81 mg PO DAILY 14 Days Qty: 14 RF: 0 oxycodone 5 mg tablet 5 - 10 mg PO Q4H PRN (Reason: moderate to severe pain) Qty: 22 RF: 0 Continued rosuvastatin [Crestor] 5 mg tablet 5 mg PO DAILY Qty: 90 RF: 3 Discharge Instructions Additional Instructions: Surgery: Shoulder arthroscopy with large rotator cuff repair, biceps tenotomy, extensive debridement, and subacromial decompression. Activity: You should keep your arm at your side in a neutral position at all times except for physical therapy. Do not try to lift or raise your arm using your own muscles. You should use the sling whenever you are out of the house. You may have to adjust the abduction pillow or remove it for comfort. At home it is best to remove the sling and rest the arm on a pillow at your side or support the operative side with your other hand. You may allow the arm to dangle at your side. A physical therapy prescription will be provided separately today. Prescriptions: Aspirin 81 mg take 1 daily to prevent a blood clot for 2 weeks Naproxen 250 mg take 1-2 every 12 hours with a meal as needed for moderate pain Oxycodone 5 mg take 1-2 every 4-6 hours as needed for severe pain You may use [id number] Tylenol (acetaminophen) as needed for mild pain. These pain medications may be taken all at once or in different combinations as needed. Also, recommend Colace (docusate) as a stool softener as surgery and pain medicine cause constipation. Dressings: Remove shoulder bandage after 3 days. Leave the sticky Steri-Strips in place until they fall off or remove them after you shower. Cover the incisions with Band-Aids or leave them open to air. You may shower after 5 days. Follow-up: 10-[address] Macias You may take off the leg compression stockings this evening at home. You may also leave them on a few days longer if you have a history of leg swelling or edema. Let us know right away if you develop any redness, drainage, fevers, chest pain, or trouble breathing. Do not drink alcohol or drive for at least 24 hours after anesthesia. Please call the office during business hours with any questions or concerns. Referrals: Mateusz Macias MD [ [facility] STAFF PHYSICIAN] - Discharge Orders Discharge Orders: Discharge Order (Routine); Ordered 04/19/20 Ordered By: Mateusz Macias DS: Diagnosis Discharge Diagnosis (1) Traumatic tear of left rotator cuff: Status: Acute (2) SLAP lesion of left shoulder: Status: Acute (3) Bursitis of left shoulder: Status: Acute (4) Impingement syndrome of left shoulder: Status: Acute
--- NOTE | 2020-04-19 13:26 | W.PM.OP ---
Date of service: 04/19/20 Time of Service: 13:02 Operative Note Operative Note DATE OF PROCEDURE: 04/19/20 PRE-OP DIAGNOSIS: Left: 1. Rotator cuff tear 2. SLAP tear 3. Bursitis 4. Impingement POST-OP DIAGNOSIS: other Left: 1. Rotator cuff tear 2. LHB split tearing/ medial subluxation 3. Bursitis 4. Impingement PROCEDURE: Left: 1. Rotator cuff repair, CPT# 57666. This involved repair of the subscapularis and supraspinatus using anchors and sutures to reattach the rotator cuff back to the footprint of the lesser and greater tuberosity. 2. Extensive debridement, CPT# 95003. This involved using arthroscopic hand instruments, power instruments, and radiofrequency instruments to release to tenotomize the long head of the biceps tendon and debride areas of labral tearing, synovitis, and chondromalacia about the biceps groove within the glenohumeral joint anteriorly, superiorly and posteriorly. 3. Subacromial decompression with partial acromioplasty, CPT# 69110. This involved using arthroscopic power instruments and a radiofrequency wand to complete a bursectomy and remove bone spurs on the undersurface of the acromion. The carpenter assistant installer was medically required in order to help assist in techniques above, which require positioning the arm, holding the arthroscope, and manipulating 2 to 4 instruments and sutures at the same time. This cannot be done without the help of an experienced carpenter assistant installer. SURGEON: Mateusz Macias QUIRK SANDER: Kaiden Cao ANESTHESIA: GETA and regional ESTIMATED BLOOD LOSS: 10 PATHOLOGY: none sent COMPLICATIONS: None Patient was transported to: PACU Patient's condition: stable Implants: Arthrex: 4.75mm SwiveLocks x2 standard, x3 knotless Indications: The patient was diagnosed with the above conditions and appropriately indicated for surgical intervention. Please see complete medical record for details. Findings: Exam under anesthesia: Full, symmetrical range of motion. No instability. Glenohumeral joint: Extensive synovitis anteriorly and superiorly. Nearly full-thickness, retracted and somewhat scarred to the anterior capsule subscapularis tear. Medial subluxation of the long head of the biceps tendon with significant split tearing from a frayed, degenerative superior labrum. Central anterior glenoid moderate thickness partial cartilage loss. Partial articular sided infraspinatus tear. No significant inferior humeral head osteophyte. Subacromial space: Complex full-thickness supraspinatus tear with intact bursal and lateral remnant most anteriorly and posteriorly. Intact bursal infraspinatus. Impinging subacromial bone spur medially. Moderate bursitis. Procedure Description: In the operating room, general anesthesia was induced. Bilateral shoulders were examined. The patient was positioned in the beachchair position. All bony prominences were well-padded. Preoperative antibiotics were administered. The shoulder was prepped and draped in the usual sterile fashion. The correct patient, procedure, and side of the procedure were all verified prior to incision. Starting through the posterior portal a standard complete diagnostic arthroscopy was performed of the glenohumeral joint including inspection of the long head of the biceps, anterior and superior labrum, subscapularis tendon, supraspinatus and infraspinatus tendons, and axillary recess. The glenoid and humeral head cartilage as well as the posterior labrum were inspected from an anterior viewing portal. Significant findings and interventions noted above. The biceps tendon was released from the superior labrum using arthroscopic scissors and withdrawn from the joint by squeezing the biceps muscle. A tenodesis but not performed given what appeared to be longstanding degenerative split tearing poor tendon quality changes in the biceps tendon. The lesser tuberosity footprint was prepared using hand and power instruments for tendon healing. The subscapularis was freed from anterior capsule adhesions carefully using a cuff elevator. A diminutive, medialized MGHL tendon was released. A rigid cannula was inserted anteriorly. The arm was positioned in neutral. Using a 1 portal technique, a suture lasso was used to pass a suture tape fiber link through the lateral and superior subscapularis. This stitch was used for traction and passing of a fiber tape more medially and centrally in the subscapularis tendon body. The punch was used to localize placement of the anchor. Both sutures were passed through the anchor eyelet and the anchor was brought down to the bone with the sutures tensioned appropriately. The arm was brought through full external rotation demonstrating no restricted motion due to the repair and secure fixation of the tendon and anchor to bone. Starting through the posterior portal, the arthroscope was directed into the subacromial space. A lateral 50 yard line lateral portal was created. A combination of power instruments and a radiofrequency ablator were used to debride bursitis anteriorly, posteriorly, and laterally as well as expose and smooth bone spurring on the undersurface of the acromion, which was more prominent medially in this case towards the AC joint. The coracoacromial ligament was only released to visualize the anterior acromion. The bursectomy was completed viewing laterally and working from posteriorly and the rotator cuff was thoroughly inspected with findings noted above. Cannulas were inserted at the superior anterior lateral and superior posterior lateral margins of the acromion as well as at the lateral 50 yard line portal. The rotator cuff tear was inspected and debrided of frayed tissue at the margins exposing a full-thickness large rotator cuff tear involving the supraspinatus tear with partial articular involvement anterior to the rotator interval and posterior into the infraspinatus. The greater was tuberosity cleared of fibrous tissue over the footprint and the bursectomy was extended laterally. Care was taken to preserve what appeared to be intact rotator cuff tissue at the anterior, posterior, and most lateral margins of the tear. A cuff grasper was used to confirm mobility and appropriate reduction of the rotator cuff tear involving all layers. There was significant thickening, delamination degeneration of the supraspinatus and infraspinatus posteriorly. A punch was used to localize placement the first medial row anchor starting anteriorly that was loaded with fiber tape. A suture passer was as well as a tissue grasper was used to pass both ends of this fiber tape through all layers of the tendon at the appropriate level medially. The knotless repair suture was then passed through the overlying anterior medial margin of the tear and this tissue was secured to the anchor. This process was repeated for the second posterior medial row anchor. The rotator cuff tear was provisionally through the medial row knotless repair sutures and the cuff grasper was now used to confirm appropriate repair across the lateral footprint. Next, a fiber tape from the anterior and posterior anchors was brought to a posterior lateral row anterior anchor and this process repeated for the anterior lateral row anchor securing reduction and achieving compression over the reduced rotator cuff repair. Centrally, there was an edge of supraspinatus tissue that was not completely compressed down to bone. The repair stitch from the anterior lateral row anchor was passed through this tissue using a self retrieving suture passer and secured in a knotless fashion. The repair was inspected through shoulder range of motion and found to be stable with secure fixation. The shoulder was drained of arthroscopic fluid. All portal sites were copiously irrigated. These incisions were closed using 3-0 Monocryl in a buried fashion, covered with Mastisol, Steri-Strips, Xeroform, dry gauze, and ABDs. The dressings were covered and secured with Medipore tape. The operative extremity was placed into a sling for immobilization. The patient awoke from anesthesia without complication and was transferred to the recovery room in a stable condition.
== END 2020-04-19 15:15 | disposition home or self-care (01) ==
PROVIDERS: PCP Emergency Medicine; Visit Provider Student in an Organized Health Care Education/Training Program
PROC: (CPT 29827; principal; 2020-04-19 08:30)
PROC: (CPT 23430; 2020-04-19 08:30)
DX: S46.012A Strain of muscle(s) and tendon(s) of the rotator cuff of left shoulder, initial encounter (principal); S43.432A Superior glenoid labrum lesion of left shoulder, initial encounter; M75.52 Bursitis of left shoulder; M75.42 Impingement syndrome of left shoulder; M75.22 Bicipital tendinitis, left shoulder; G89.18 Other acute postprocedural pain; W11.XXXA Fall on and from ladder, initial encounter; Y93.H9 Activity, other involving exterior property and land maintenance, building and construction; M65.812 Other synovitis and tenosynovitis, left shoulder
CPT/HCPCS: 29827; 29823; 29826; 76942; L3670; J0690; J1100; J1885; J2405; J2704

== ENCOUNTER → 2020-05-01 10:40 | Outpatient (BNVA) | payer MEDICARE, SELFPAY | PROVIDERS: PCP Emergency Medicine; Referring Provider Emergency Medicine; Visit Provider Student in an Organized Health Care Education/Training Program | DX: S46.012D Strain of muscle(s) and tendon(s) of the rotator cuff of left shoulder, subsequent encounter (principal); X58.XXXD Exposure to other specified factors, subsequent encounter; M75.52 Bursitis of left shoulder; M75.42 Impingement syndrome of left shoulder; M75.22 Bicipital tendinitis, left shoulder; Z98.890 Other specified postprocedural states ==

== ENCOUNTER → 2020-06-12 09:49 | Outpatient (BNVA) | payer MEDICARE, SELFPAY | PROVIDERS: PCP Emergency Medicine; Visit Provider Student in an Organized Health Care Education/Training Program | DX: Z47.89 Encounter for other orthopedic aftercare (principal); M75.52 Bursitis of left shoulder; M75.42 Impingement syndrome of left shoulder; M75.22 Bicipital tendinitis, left shoulder ==

== ENCOUNTER → 2020-06-12 13:27 | Outpatient (BNVA) | payer MEDICARE, SELFPAY | PROVIDERS: PCP Emergency Medicine; Referring Provider Emergency Medicine; Visit Provider Internal Medicine Cardiovascular Disease | DX: I77.810 Thoracic aortic ectasia (principal); F17.210 Nicotine dependence, cigarettes, uncomplicated | CPT/HCPCS: 99214 ==

== ENCOUNTER 2020-06-22 03:05 | Outpatient (CLI) | payer MEDICARE, SELFPAY ==
--- NOTE | 2020-06-22 06:30 | DI.US_ITS ---
APPROVED REPORT EXAM: Comprehensive 2D, Doppler, and color-flow Echocardiogram Patient Location: Out-Patient Cytotechnologist: Amber Herrera RDCS (AE) Rhythm: Bradycardia Indications: Thoracic aortic aneurysm Other Information Study Quality: Adequate Conclusion Normal left ventricular wall thickness and chamber size and systolic function. Ejection fraction is 55 to 60% Normal right ventricular chamber size and systolic function Normal left and right atrial size There are no significant structural valvular abnormalities The ascending aorta is mildly to moderately dilated measuring 4.3 cm Wall motion Left Ventricle The left ventricle is normal size. The left ventricular systolic function is normal. The left ventric ular ejection fraction is within the normal range. There is normal left ventricular wall thickness. T here is normal LV segmental wall motion. There is no ventricular septal defect visualized. LVEF is 57 %. Right Ventricle The right ventricle is normal size. The right ventricular systolic function is normal. The RVSP is 20 .7mmHg. Atria The left atrium size is normal. The right atrium size is normal. The interatrial septum is intact wit h no evidence for an atrial septal defect. Aortic Valve The aortic valve is normal in structure. Aortic valve is trileaflet. There is no aortic valvular sten osis. No aortic regurgitation is present. Mitral Valve The mitral valve is normal in structure. No evidence of mitral valve stenosis. Trace mitral regurgita tion. Tricuspid Valve The tricuspid valve is normal in structure. There is no tricuspid valve stenosis. Trace tricuspid reg urgitation. Pulmonic Valve The pulmonary valve is normal in structure. There is no pulmonic valvular stenosis. There is no pulmo nathaniel valvular regurgitation. Great Vessels The aortic root is normal in size. The ascending aorta is moderately dilated.4.3 cm IVC is normal in size and collapses >50% with inspiration. Pericardium There is no pericardial effusion. 2D Dimensions IVSD d PLAX 0.96 cm M: 0.6-1.2 LV Vol A2C d MOD 70.5 mL LVPW d PLAX 0.98 cm M: 0.6 - 1.2 LV Vol A4C d MOD 117.2 mL LVID d PLAX 5.25 cm M: 4.2 - 5.8 LA vol/ BSA A2C s A-L 12.8 mL/m2 LVDs 3.70 cm M: 2.5 - 4.0 LA vol/ BSA A4C s A-L 21.5 mL/m2 Ao Root d 3.08 cm M: 3.1 - 3.7 LA Vol/ BSA Biplane s A-L 16.7 mL/m2 RA Area A4C 16.24 cm2 LA Area A4C s MOD 15.70 cm2 RA Vol/ BSA A4C s A-L 22.1 mL/m2 LA Area A2C s MOD 12.18 cm2 Ao Asc Diam d 4.31 cm M: 2.6 - 3.4 LV EF A4C MOD 56.7 % LV EF Teichholz 55.7 % LV EF A2C MOD 53.2 % LVEF (Santiago's) 53.38 % M: 52 - 72 LV EF Biplane MOD 53.4 % LV Volume 67.85 mL M: 62 - 150 SV 48.63 mL LV Volume Index 33.25 mL/m2 M: 34 - 74 SV Index 23.81 mL/m2 LV Vol Biplane MOD 91.1 mL FS 29.25 % M-Mode TAPSE 2.31 cm (M/F) >1.7 LV Diastology MV E' medial 0.051 (>0.07 m/s) E/A Ratio 1.1 LV E/e MED 10.45 (<14) MV E Vmax 0.53 (0.4-1.3 m/s) MV E' lateral 0.088 (>0.1 m/s) MV A Vmax 0.50 (0.4-1.3 m/s) LV E/e LAT 6.00 (<14) MV E/A Ratio 1.01 MV E/E' medial 10.45 MV E/E' lateral 6.00 Aortic Valve LVOT Area 4.48 cm2 AoV Area Vmax 3.03 cm2 LVOT Vmax 0.97 m/s AoV Area/ BSA (Vmax) 1.48 cm2/m2 LVOT Mean Elbert. 0.75 m/s ELISSA Mean Elbert. 3.49 cm2 LVOT Peak Grad 3.7 mmHg ELISSA Mean Elbert. Index 1.71 cm2/m2 LVOT Mean Grad 2.4 mmHg LVOT VTI 0.224 m LVOT Diam s 2.35 cm AoV Vmax 1.43 m/s Velocity Ratio 0.67 AoV Mean Elbert. 0.96 m/s AoV Peak Grad 8.2 mmHg LVOT SV 100.19 mL AoV Mean Grad 4.2 mmHg AoV VTI 0.315 m AoV Area VTI 3.18 cm2 AoV Area/ BSA (VTI) 1.56 cm/m2 Mitral Valve MV DT 261 (160-240 msec) MV PHT 76 msec MV Area PHT 2.91 cm2 Pulmonary Valve PV Vmax 1.01 (0.5-1.5 m/s) RVOT Peak Gr. 1.21 mmHg PV Peak Grad 4.1 mmHg RVOT Mean Gr. 0.65 mmHg PV Mean Grad 1.9 mmHg RVOT VTI 0.143 m PV VTI 0.187 m RVOT Vmax 0.55 m/s Tricuspid Valve TR Peak Grad 17.6 mmHg TR Vmax 2.10 m/s RA Pressure 3.00 mmHg RVSP (TR) 20.7 mmHg
== END 2020-06-22 03:25 ==
PROVIDERS: PCP Emergency Medicine; Visit Provider Internal Medicine Cardiovascular Disease
DX: I71.2 Thoracic aortic aneurysm, without rupture (principal)
CPT/HCPCS: 93306

== ENCOUNTER → 2020-07-10 10:30 | Outpatient (BNVA) | payer MEDICARE, SELFPAY | PROVIDERS: PCP Emergency Medicine; Referring Provider Emergency Medicine; Visit Provider Student in an Organized Health Care Education/Training Program | DX: Z47.89 Encounter for other orthopedic aftercare (principal); M75.22 Bicipital tendinitis, left shoulder; M75.52 Bursitis of left shoulder; M75.42 Impingement syndrome of left shoulder ==

== ENCOUNTER → 2020-08-14 00:45 | Outpatient (CLI) | payer MEDICARE, SELFPAY ==
--- NOTE | 2020-08-14 08:32 | DI.MRI_ITS ---
EXAM: MR UPPER JOINT LT WO CLINICAL HISTORY: Failure postoperative ROM strength,TRAUMATIC TEAR OF LT ROTATOR CUFF,S46.. TECHNIQUE: Multiplanar multisequence MRI was performed. COMPARISON: MR MR UPPER JOINT LT WO from 04/06/2020 FINDINGS: BONES: There is no fracture or contusion pattern. There are now postsurgical changes seen in the rome ral head. JOINTS: Degenerative changes are seen in the acromioclavicular joint. There is mild spurring of the humeral head. There is mild thinning of the articular cartilage at the glenohumeral joint. TENDONS: Supraspinatus: Unremarkable. Infraspinatus: Unremarkable. Subscapularis: Tendinosis of the subscapularis tendon but no evidence of a tear. There does appear t o be some discontinuity within the subscapularis tendon. This is unchanged compared to the MRI exami nation from 04/06/2020. [place]res [place]: Unremarkable. Biceps and [place]: Findings suggestive of surgical repositioning of the biceps tendon. MUSCLES: Mild fatty atrophy of the subscapularis muscle. The remaining rotator cuff muscles are with in normal limits. GLENOID LABRUM: Unremarkable on this noncontrast examination. SOFT TISSUES: Unremarkable. LIGAMENTS: Unremarkable. OTHER: Small amount of fluid in the subacromial bursa. IMPRESSION: 1. Status post rotator cuff repair. 2. Discontinuity seen in the subscapularis tendon. This has a similar appearance compared to the MRI from 04/06/2020. 3. No evidence of an acute rotator cuff tear. 4. Degenerative changes at the acromioclavicular and glenohumeral joints. DATA REPOSITORY:
== END ==
PROVIDERS: PCP Emergency Medicine; Visit Provider Student in an Organized Health Care Education/Training Program
DX: S46.012D Strain of muscle(s) and tendon(s) of the rotator cuff of left shoulder, subsequent encounter (principal); M19.012 Primary osteoarthritis, left shoulder
CPT/HCPCS: 73221

== ENCOUNTER → 2020-08-29 11:11 | Outpatient (BNVA) | payer MEDICARE, SELFPAY | PROVIDERS: PCP Emergency Medicine; Referring Provider Emergency Medicine; Visit Provider Student in an Organized Health Care Education/Training Program | DX: Z47.89 Encounter for other orthopedic aftercare (principal); M75.22 Bicipital tendinitis, left shoulder; M75.52 Bursitis of left shoulder; M75.42 Impingement syndrome of left shoulder | CPT/HCPCS: 99214 ==

== ENCOUNTER → 2020-11-20 08:05 | Outpatient (BNVA) | payer MEDICARE, SELFPAY | PROVIDERS: PCP Emergency Medicine; Referring Provider Emergency Medicine; Visit Provider Student in an Organized Health Care Education/Training Program | DX: Z47.89 Encounter for other orthopedic aftercare (principal); M75.22 Bicipital tendinitis, left shoulder; M75.52 Bursitis of left shoulder; M75.42 Impingement syndrome of left shoulder | CPT/HCPCS: 99213 ==

== ENCOUNTER 2020-12-26 12:35 | Outpatient (REF) | payer MEDICARE, SELFPAY ==
[2020-12-27 17:22] LABS: PSA, Diagnostic 1.4 ng/mL (0.0-4.5)
== END 2020-12-26 12:36 | disposition home or self-care (01) ==
LOC: LBN 12:35
PROVIDERS: PCP Emergency Medicine; Visit Provider Emergency Medicine
DX: N40.0 Benign prostatic hyperplasia without lower urinary tract symptoms (principal)
CPT/HCPCS: 84153

== ENCOUNTER 2021-06-11 01:34 | Outpatient (CLI) | payer MEDICARE, SELFPAY ==
--- NOTE | 2021-06-11 13:00 | DI.US_ITS ---
APPROVED REPORT EXAM: Comprehensive 2D, Doppler, and color-flow Echocardiogram Patient Location: Out-Patient Book Solicitor: Amber Herrera RDCS (AE) Indications: H/o Ascending aortic aneurysm Other Information Study Quality: Adequate Conclusion Normal left ventricular wall thickness and chamber size. Estimated ejection fraction is 60%. Wall m otion is normal Normal right ventricular size and systolic function Both atria are normal in size There is no structural or hemodynamically significant valvular disease Dilated ascending aorta measuring 4.36 cm Wall motion Left Ventricle The left ventricle is normal size. The left ventricular systolic function is normal. The left ventric ular ejection fraction is within the normal range. There is normal left ventricular wall thickness. T here is normal LV segmental wall motion. There is no ventricular septal defect visualized. LVEF is 60 %. Right Ventricle The right ventricle is normal size. The right ventricular systolic function is normal. The RVSP is 21 .1mmHg. Atria The left atrium size is normal. The right atrium size is normal. The interatrial septum is intact wit h no evidence for an atrial septal defect. Aortic Valve The aortic valve is normal in structure. Aortic valve is trileaflet. There is no aortic valvular sten osis. No aortic regurgitation is present. Mitral Valve The mitral valve is normal in structure. No evidence of mitral valve stenosis. Trace mitral regurgita tion. Tricuspid Valve The tricuspid valve is normal in structure. There is no tricuspid valve stenosis. Trace tricuspid reg urgitation. Pulmonic Valve The pulmonary valve is normal in structure. There is no pulmonic valvular stenosis. There is no pulmo nathaniel valvular regurgitation. Great Vessels The aortic root is normal in size. The ascending aorta is moderately dilated.4.36 cm IVC is normal in size and collapses >50% with inspiration. Pericardium There is no pericardial effusion. 2D Dimensions IVSD d PLAX 0.95 cm M: 0.6-1.2 LV Vol A2C d MOD 96.4 mL LVPW d PLAX 0.95 cm M: 0.6 - 1.2 LV Vol A4C d MOD 107.9 mL LVID d PLAX 5.40 cm M: 4.2 - 5.8 LA vol/ BSA A2C s A-L 23.2 mL/m2 LVDs 3.60 cm M: 2.5 - 4.0 LA vol/ BSA A4C s A-L 18.3 mL/m2 Ao Root d 3.06 cm M: 3.1 - 3.7 LA Vol/ BSA Biplane s A-L 21.6 mL/m2 RA Area A4C 12.41 cm2 LA Area A4C s MOD 15.02 cm2 RA Vol/ BSA A4C s A-L 13.3 mL/m2 LA Area A2C s MOD 16.12 cm2 Ao Asc Diam d 4.36 cm M: 2.6 - 3.4 LV EF A4C MOD 63.3 % LV EF Teichholz 60.7 % LV EF A2C MOD 62.2 % LVEF (Santiago's) 59.90 % M: 52 - 72 LV EF Biplane MOD 59.9 % LV Volume 79.94 mL M: 62 - 150 SV 63.12 mL LV Volume Index 41.41 mL/m2 M: 34 - 74 SV Index 32.65 mL/m2 LV Vol Biplane MOD 105.4 mL FS 32.75 % M-Mode TAPSE 2.25 cm (M/F) >1.7 LV Diastology MV E' medial 0.070 (>0.07 m/s) E/A Ratio 0.7 LV E/e MED 7.50 (<14) MV E Vmax 0.53 (0.4-1.3 m/s) MV E' lateral 0.101 (>0.1 m/s) MV A Vmax 0.75 (0.4-1.3 m/s) LV E/e LAT 5.20 (<14) MV E/A Ratio 0.70 MV E/E' medial 7.53 MV E/E' lateral 5.23 Aortic Valve LVOT Area 3.53 cm2 AoV Area Vmax 2.93 cm2 LVOT Vmax 1.12 m/s AoV Area/ BSA (Vmax) 1.51 cm2/m2 LVOT Mean Elbert. 0.83 m/s ELISSA Mean Elbert. 2.80 cm2 LVOT Peak Grad 5.1 mmHg ELISSA Mean Elbert. Index 1.45 cm2/m2 LVOT Mean Grad 3.0 mmHg LVOT VTI 0.265 m LVOT Diam s 2.10 cm AoV Vmax 1.36 m/s Velocity Ratio 0.82 AoV Mean Elbert. 1.05 m/s AoV Peak Grad 7.4 mmHg LVOT SV 93.51 mL AoV Mean Grad 4.7 mmHg AoV VTI 0.374 m AoV Area VTI 2.50 cm2 AoV Area/ BSA (VTI) 1.29 cm/m2 Mitral Valve MV DT 310 (160-240 msec) MV PHT 90 msec MV Area PHT 2.44 cm2 MV VTI 0.152 m MV Area VTI 6.15 (4.0-6.0 cm2) Pulmonary Valve PV Vmax 1.16 (0.5-1.5 m/s) RVOT Peak Gr. 1.55 mmHg PV Peak Grad 5.4 mmHg RVOT Mean Gr. 0.80 mmHg PV Mean Grad 2.6 mmHg RVOT VTI 0.151 m PV VTI 0.240 m RVOT Vmax 0.62 m/s Tricuspid Valve TR Peak Grad 18.0 mmHg TR Vmax 2.13 m/s RA Pressure 3.00 mmHg RVSP (TR) 21.1 mmHg
== END 2021-06-11 01:54 ==
PROVIDERS: PCP Emergency Medicine; Visit Provider Emergency Medicine
DX: I77.810 Thoracic aortic ectasia (principal)
CPT/HCPCS: 93306

== ENCOUNTER → 2021-06-17 09:35 | Outpatient (BNVA) | payer MEDICARE, SELFPAY | PROVIDERS: PCP Emergency Medicine; Referring Provider Emergency Medicine; Visit Provider Internal Medicine Cardiovascular Disease | DX: I77.810 Thoracic aortic ectasia (principal); E78.00 Pure hypercholesterolemia, unspecified; F17.210 Nicotine dependence, cigarettes, uncomplicated | CPT/HCPCS: 99213 ==

== ENCOUNTER 2021-12-30 14:19 | Emergency (ER) | payer MEDICARE, SELFPAY ==
[2021-12-30 15:00] VITALS: BP 130/74; PULSE 63; RESP 16; TEMP 36.4; O2SAT 96
[2021-12-30 15:34] VITALS: BP 128/72; PULSE 57; RESP 16; TEMP 37; O2SAT 95
--- NOTE | 2021-12-30 16:21 | W.ED.GENAD ---
Discharge Plan Disposition Patient Disposition: HOME Condition: Stable Discharge Details Clinical Impression: Open fracture of finger of left hand Primary Care Provider: Zac Clark ED Provider: Paulie Kearns Home Meds and New Rx's Prescriptions: New cephalexin 500 mg capsule 500 mg PO QID 10 Days Qty: 40 0RF No Action rosuvastatin [Crestor] 5 mg tablet 5 mg PO DAILY Qty: 90 3RF Label Comments: 08/21/17: New rx, has not started yet. Discharge Instructions Instructions: Finger Fracture (ED) Additional Instructions: X-ray reveals an open finger fracture. Unfortunately based upon the type of laceration, there is nothing to repair. Keflex as directed. Change antibiotic dressing daily and wear splint until reevaluation by orthopedics. I have placed you on the orthopedic list, please contact their office tomorrow to discuss your ER visit and need for outpatient reevaluation. Rest, elevate, cool compresses every 2 hours for 20 minutes. [id number] medications as directed for symptomatic control. Please watch for new or worsening symptoms and return to the ER for any concerns. Referrals: Gigi Carnes MD [ [facility] STAFF PHYSICIAN] - Discharge Data Discharge Date/Time-TO BE ENTERED AT DEPARTURE: 12/30/21 18:15 Medical Decision Making 71-year-old gentleman, [id number], presents with a left index finger injury versus happened at work prior to arrival. Neuro, vascular, tendon intact. Tetanus status greater than 5 years we will update now. Will obtain x-ray in the meantime have the wound thoroughly soaked, irrigated, cleaned. X-ray reveals fracture at the base of the distal phalanx and tuft fracture. Plan to initiate Keflex oral therapy, apply antibiotic dressing and finger splint, placed on the orthopedic list to help expedite outpatient primary care follow-up and provide Keflex prescription. Standard discharge and return precautions were provided. Patient understands, is agreeable to this plan, and has no additional questions or concerns upon discharge. This documentation was generated using [employer] system, please disregard any oddities of phrase or misspellings. Medical Records Medical records reviewed: Yes I reviewed the patient's medical records. Lab Data Lab results reviewed: Yes I reviewed the patient's lab results. Labs: Exam(s) XR HAND LT COMPLETE EXAM: XR HAND LT COMPLETE CLINICAL HISTORY: index finger vs saw. TECHNIQUE: 2D digital imaging was performed. Three views. COMPARISON: No exams were available for comparison FINDINGS: BONES: Fracture at the volar base of the distal phalanx of the index finger. Fracture fragments from the tuft. Overlying soft tissue defect. No foreign body.. No bony destructive lesion is seen. JOINTS: No dislocation present. Degenerative changes interphalangeal joints. SOFT TISSUE: Normal. IMPRESSION: Fracture at the base of the distal phalanx of the index finger. Additional tuft fracture. HPI General Mode of arrival: ambulatory. Date/Time Provider Initiated Documentation: 12/30/21 15:18. Limitations to Documentation: no limitations. Information obtained by: patient. History of Present Illness 71 year old M presents to the emergency department with the chief complaint of L index finger injury, described as mild, with intensity rated at 3. Quality is described as aching, and is localized to the left and upper extremity. Patient reports no radiation. Patient started experiencing this hour(s) (3) and it has been constant. improves with No relieving factors improve symptom(s), Movement worsens symptoms . Patient notes no other symptoms.. Patient did receive the following treatments prior to arrival, none Related Data Home Medications Medication Instructions Recorded Confirmed rosuvastatin 5 mg tablet (Crestor) 5 mg PO DAILY #90 tab-cap 01/01/21 06/17/21 cephalexin 500 mg capsule 500 mg PO QID 10 Days #40 cap 12/30/21 Previous Rx's Medication Instructions Recorded rosuvastatin 5 mg tablet (Crestor) 5 mg PO DAILY #90 tab-cap 01/01/21 cephalexin 500 mg capsule 500 mg PO QID 10 Days #40 cap 12/30/21 Allergies Allergy/AdvReac Type Severity Reaction Status Date / Time No Known Allergies Allergy Verified 06/17/21 09:43 General Stated Complaint: Laceration DAYANA: 4 Review of Systems Constitutional Constitutional: Denies fever(s) and Denies weakness Musculoskeletal Musculoskeletal: Denies deformity, Denies arthralgias, Denies numbness, Reports stiffness and Denies tingling Integumentary/Breasts Skin/Breast: Denies erythema and Denies rash Neurologic Neurologic: Denies numbness, Denies tingling and Denies weakness PFSH All Active Problems (Updated 12/30/21 @ 17:44 by MONICA Baldwin) Open fracture of finger of left hand (Acute) BPH (benign prostatic hyperplasia) (Chronic) Tendinitis of long head of biceps brachii of left shoulder (Acute) Hyperlipidemia (Acute) Bilateral tinnitus (Acute 07/07/17) Arteritis, unspecified (Acute) Dilatation of thoracic aorta (Acute) Traumatic tear of left rotator cuff (Acute ~01/2020) Bursitis of left shoulder (Acute) Impingement syndrome of left shoulder (Acute) High cholesterol (Chronic) Left shoulder pain (Acute) Lumbago of lumbar region with sciatica (Acute) Medical History SLAP lesion of left shoulder (~01/2020) Family History Mother No problems noted. Father No problems noted. Sister No problems noted. Sister No problems noted. Brother , 55 Heart disease Maternal Grandfather , 76 No problems noted. Paternal Grandfather , 80 No problems noted. Maternal Grandmother , 90 No problems noted. Paternal Grandmother No problems noted. Son No problems noted. Son No problems noted. Daughter No problems noted. Daughter No problems noted. Social History Smoking/Tobacco Use Status: Current-Occasional Tobacco Type: cigarettes Tobacco: How many years used: 50 Smokeless tobacco user: chewing tobacco Second Hand Exposure: Yes Smoking risk assessment performed?: Yes Alcohol Intake: current Alcohol Intake frequency: a few times a month Alcohol type: beer Drug use: Occasionally Substance use type: marijuana Household members: spouse Housing: house current occupation: [employer] Pets and animals: Yes Pets and animals: cat(s) and dog(s) Sexually active: Yes Do you think of yourself as: straight/heterosexual Current gender identity: male What is your relationship status?: How often do you talk on the phone with friends or family?: three or more times per week How often do you get together with friends or relatives?: once per week How often do you attend methodist or mosque services?: decline to answer Do you belong to any clubs or organized social groups?: no Panel score (0-1 are the most socially isolated patients): 2 Frequency: daily [place]/Pentecostalism: Anabaptist Special [place] needs: No Do you feel safe at home: Yes Do you feel safe in your relationship?: Yes Exam Const General: cooperative, healthy appearing, comfortable and no acute distress Orientation: alert and awake [facility] Head: normal to inspection, normocephalic and atraumatic Eyes Conjunctivae: conjunctivae normal Neck Neck: normal visual inspection, trachea midline and supple Resp Effort & Inspection: normal respiratory effort and able to speak in complete sentences Skin General skin exam: no rashes or lesions noted Neuro General: patient alert, patient awake, moves all extremities and no focal motor deficits Cognition: normal cognition Speech: speech normal Gait: normal gait Motor: muscle tone normal throughout Sensory Exam: no sensory deficits noted Extrem General: full ROM and capillary refill normal Hand/finger images: 1. Left index finger, well approximated but irregular laceration to the distal tip that includes the flexor aspect as well as involvement of the distal nail as well. There is no active bleeding or obvious foreign body. 5 out of 5 strength. Neuro, vascular, tendon intact. Psych Appearance: grossly normal Mental Status: mental status grossly normal Course Vital Signs Vital signs: Vital Signs Temperature 36.4 C L 12/30/21 15:00 Pulse 63 12/30/21 15:00 Respiratory Rate 16 12/30/21 15:00 Blood Pressure 130/74 12/30/21 15:00 Pulse Oximetry 96 12/30/21 15:00 Temperature 37.0 C 12/30/21 15:34 Temperature Source Tympanic 12/30/21 15:34 Pulse 57 L 12/30/21 15:34 Respiratory Rate 16 12/30/21 15:34 Blood Pressure 128/72 12/30/21 15:34 Blood Pressure Position Sitting 12/30/21 15:00 Pulse Oximetry 95 12/30/21 15:34 Oxygen Delivery Method Room Air 12/30/21 15:34 Oxygen Flow Rate 0 12/30/21 15:34 Pain Level 6 12/30/21 15:00
--- NOTE | 2021-12-30 16:30 | DI.RAD_ITS ---
Exam(s) XR HAND LT COMPLETE EXAM: XR HAND LT COMPLETE CLINICAL HISTORY: index finger vs saw. TECHNIQUE: 2D digital imaging was performed. Three views. COMPARISON: No exams were available for comparison FINDINGS: BONES: Fracture at the volar base of the distal phalanx of the index finger. Fracture fragments from the tuft. Overlying soft tissue defect. No foreign body.. No bony destructive lesion is seen. JOINTS: No dislocation present. Degenerative changes interphalangeal joints. SOFT TISSUE: Normal. IMPRESSION: Fracture at the base of the distal phalanx of the index finger. Additional tuft fracture. DATA REPOSITORY: RADIATION DOSE DELIVERED:
--- NOTE | 2021-12-30 17:14 | DI.VRAD_ITS ---
PROCEDURE INFORMATION: Exam: XR Left Hand Exam date and time: 12/30/2021 4:56 PM Age: 71 years old Clinical indication: Other: Index finger vs saw TECHNIQUE: Imaging protocol: XR Left hand. Views: 3 or more views. COMPARISON: MR UPPER JOINT LT WO 08/14/2020 8:03 AM FINDINGS: Bones/joints: Joint space narrowing in the DIP joints and PIP joints of the fingers. Fragmentation in the distal aspect of the distal phalanx of the index finger consistent with minimally displaced tuft fracture. . Lucency in the proximal aspect of the distal phalanx of the index finger consistent with minimally displaced intra-articular fracture of the distal phalanx of the index finger. Displaced avulsion fractures seen best on the lateral where there is a displaced avulsion fracture involving the proximal aspect of the distal phalanx of the index finger. Soft tissues: Soft tissue swelling of the index finger IMPRESSION: 1. Fragmentation in the distal aspect of the distal phalanx of the index finger consistent with minimally displaced tuft fracture. . 2. Lucency in the proximal aspect of the distal phalanx of the index finger consistent with minimally displaced intra-articular fracture of the distal phalanx of the index finger. 3. Displaced avulsion fractures seen best on the lateral where there is a displaced avulsion fracture involving the proximal aspect of the distal phalanx of the index finger. Dictated and Authenticated by: Mabel López MD. Ordering:FRANCISCO Apodaca MD
[2021-12-30] MEDS: Cephalexin 500 MG CAP PO (18:22)
--- NOTE | 2021-12-30 18:28 | NUR.NOTE ---
Nursing Note: RIGHT INDEX FINGER CLEANSED, ANTIBIOTIC OINTMENT & DRESSING APPLIED, SPLINT IN PLACE.
== END 2021-12-30 18:15 | disposition home or self-care (01) ==
PROVIDERS: Emergency Provider Physician Assistant; PCP Family Medicine
DX: S62.631B Displaced fracture of distal phalanx of left index finger, initial encounter for open fracture (principal); W31.2XXA Contact with powered woodworking and forming machines, initial encounter; Y99.0 Civilian activity done for income or pay
CPT/HCPCS: 29130; 90471; 99283; 73130

== ENCOUNTER → 2022-01-08 14:40 | Outpatient (BNVA) | payer MEDICARE, SELFPAY | PROVIDERS: PCP Nurse Practitioner Family; Referring Provider Nurse Practitioner Family; Visit Provider Student in an Organized Health Care Education/Training Program | DX: S62.631A Displaced fracture of distal phalanx of left index finger, initial encounter for closed fracture (principal); W27.0XXA Contact with workbench tool, initial encounter | CPT/HCPCS: 99213; 99214 ==

== ENCOUNTER 2022-06-13 00:56 | Outpatient (CLI) | payer MEDICARE, SELFPAY ==
--- NOTE | 2022-06-13 10:28 | DI.US_ITS ---
APPROVED REPORT EXAM: Comprehensive 2D, Doppler, and color-flow Echocardiogram Patient Location: Out-Patient Field Laborer: Amber Herrera RDCS (AE) Indications: Dilated thoracic aorta Other Information Study Quality: Adequate Conclusion Normal left ventricular wall thickness and chamber size. Estimated ejection fraction is 60%. Wall m otion is normal Normal right ventricular size and systolic function Both atria are normal in size There is no structural or hemodynamically significant valvular disease Dilated ascending aorta measuring 4.37 cm Wall motion Left Ventricle The left ventricle is normal size. The left ventricular systolic function is normal. The left ventric ular ejection fraction is within the normal range. There is normal left ventricular wall thickness. T here is normal LV segmental wall motion. There is no ventricular septal defect visualized. LVEF is 60 %. Right Ventricle The right ventricle is normal size. The right ventricular systolic function is normal. Atria The left atrium size is normal. The right atrium size is normal. The interatrial septum is intact wit h no evidence for an atrial septal defect. Aortic Valve The aortic valve is normal in structure. Aortic valve is trileaflet. There is no aortic valvular sten osis. Trace aortic regurgitation. Mitral Valve The mitral valve is normal in structure. No evidence of mitral valve stenosis. Trace to mild mitral r egurgitation. Tricuspid Valve The tricuspid valve is normal in structure. There is no tricuspid valve stenosis. Trace tricuspid reg urgitation. Unable to assess PA pressure. Pulmonic Valve The pulmonary valve is normal in structure. There is no pulmonic valvular stenosis. Trace pulmonic re gurgitation. Great Vessels The aortic root is normal in size. The ascending aorta is moderately dilated.4.37 cm Aortic arch is n ormal in caliber. IVC is normal in size and collapses >50% with inspiration. Pericardium There is no pericardial effusion. 2D Dimensions IVSD d PLAX 1.05 cm M: 0.6-1.2 LV Vol A2C d MOD 138.1 mL LVPW d PLAX 1.06 cm M: 0.6 - 1.2 LV Vol A4C d MOD 134.2 mL LVID d PLAX 5.56 cm M: 4.2 - 5.8 LA vol/ BSA A2C s A-L 31.6 mL/m2 LVDs 3.75 cm M: 2.5 - 4.0 LA vol/ BSA A4C s A-L 21.5 mL/m2 Ao Root d 3.11 cm M: 3.1 - 3.7 LA Vol/ BSA Biplane s A-L 26.3 mL/m2 RA Area A4C 12.20 cm2 LA Area A4C s MOD 15.74 cm2 RA Vol/ BSA A4C s A-L 12.5 mL/m2 LA Area A2C s MOD 19.22 cm2 Ao Asc Diam d 4.37 cm M: 2.6 - 3.4 LV EF A4C MOD 60.6 % LV EF Teichholz 59.9 % LV EF A2C MOD 60.7 % LVEF (Santiago's) 59.67 % M: 52 - 72 LV EF Biplane MOD 59.7 % LV Volume 109.58 mL M: 62 - 150 SV 87.12 mL LV Volume Index 55.06 mL/m2 M: 34 - 74 SV Index 43.65 mL/m2 LV Vol Biplane MOD 146.0 mL FS 32.25 % M-Mode TAPSE 2.21 cm (M/F) >1.7 LV Diastology MV E' medial 0.071 (>0.07 m/s) E/A Ratio 1.1 LV E/e MED 8.20 (<14) MV E Vmax 0.59 (0.4-1.3 m/s) MV E' lateral 0.091 (>0.1 m/s) MV A Vmax 0.55 (0.4-1.3 m/s) LV E/e LAT 6.45 (<14) MV E/A Ratio 1.04 MV E/E' medial 8.22 MV E/E' lateral 6.45 Aortic Valve LVOT Area 3.73 cm2 AoV Area Vmax 2.84 cm2 LVOT Vmax 1.08 m/s AoV Area/ BSA (Vmax) 1.42 cm2/m2 LVOT Mean Elbert. 0.70 m/s ELISSA Mean Elbert. 2.84 cm2 LVOT Peak Grad 4.7 mmHg ELISSA Mean Elbert. Index 1.42 cm2/m2 LVOT Mean Grad 2.3 mmHg LVOT VTI 0.271 m LVOT Diam s 2.15 cm AoV Vmax 1.42 m/s Velocity Ratio 0.76 AoV Mean Elbert. 0.92 m/s AoV Peak Grad 8.0 mmHg LVOT SV 101.09 mL AoV Mean Grad 3.9 mmHg AoV VTI 0.335 m AoV Area VTI 3.02 cm2 AoV Area/ BSA (VTI) 1.51 cm/m2 Mitral Valve MV DT 228 (160-240 msec) MV PHT 66 msec MV Area PHT 3.33 cm2 Pulmonary Valve PV Vmax 1.12 (0.5-1.5 m/s) RVOT Peak Gr. 1.71 mmHg PV Peak Grad 5.0 mmHg RVOT Mean Gr. 0.85 mmHg PV Mean Grad 2.3 mmHg RVOT VTI 0.157 m PV VTI 0.228 m RVOT Vmax 0.65 m/s
== END 2022-06-13 01:16 ==
LOC: DI 00:56
PROVIDERS: PCP Nurse Practitioner Family; Visit Provider Internal Medicine Cardiovascular Disease
DX: I77.810 Thoracic aortic ectasia (principal)
CPT/HCPCS: 93306

== ENCOUNTER 2022-06-16 02:08 | Outpatient (CLI) | payer MEDICARE, SELFPAY ==
--- NOTE | 2022-06-16 06:45 | DI.CTLCSR_ITS ---
Exam(s) CT CHEST LUNG CANCER SCREEN EXAM: CT CHEST LUNG CANCER SCREEN CLINICAL HISTORY: Screening for lung cancer,current smoker, f17.210 TECHNIQUE: Imaging Protocol: Axial computed tomography images with coronal and sagittal reformatted images were created and reviewed. Low dose screening protocol. COMPARISON: CT CT THORAX CTA from 08/19/2019 FINDINGS: Tracheobronchial tree: No bronchiectasis or mucus plugging.. Mediastinum and Deonna: No dominant adenopathy or fluid collection. Pulmonary parenchyma: No consolidation or dominant measurable mass. Minimal emphysematous changes. Lung Nodules: Scattered calcified granulomas. Pleura: No effusion. No pneumothorax. Heart: There is left ventricular and left atrial enlargement. coronary artery calcifications are se en. Aorta: Ascending aorta maximal diameter 4.4 cm. Upper abdomen: Unremarkable. Bones: Multilevel endplate osteophytes eccentric toward the right. Soft Tissues: Unremarkable. IMPRESSION: No suspicious pulmonary nodules. Lung RADS Cat 1 - Negative: No nodules and definitely benign nodules Lung-RADS 1.0 CATEGORIES: Category 0 - Prior chest CT exam(s) being located for comparison. Category 1 - Annual screening in 12 months. No nodules or definitely benign nodules. Category 2 - Annual screening in 12 months. Benign appearance. Nodules with low likelihood of becomin g active cancer. Category 3 - 6-month follow-up. Probably benign. Short-term follow-up suggested. Nodules with low lik elihood of becoming active cancer. Category 4A - 3-month follow-up and CT/PET if >8 mm in size. Suspicious finding. Findings which requi re additional testing. Category 4B - Findings which require additional testing and tissue sampling. Category 4X - Category 3 or 4 nodules with additional features or imaging findings that increases the suspicion of malignancy. Modifier S- Potentially clinically significant findings (non lung cancer) RADIATION DOSE DELIVERED: 79.48mGy.cm Total DLP 1.84mGy CTDIvol DATA REPOSITORY: All CT scans at this facility are submitted to the National Radiology Data Registry (NRDR) Dose Index Registry (DIR) with the [employer] ([employer]). RADIATION OPTIMIZATION: All CT scans at this facility use at least one of these dose optimization te chniques: automated exposure control; mA and/or kV adjustment per patient size (includes targeted exa ms where dose is matched to clinical indication); or iterative reconstruction.
--- NOTE | 2022-06-16 06:45 | DI.US_ITS ---
Exam(s) US AAA SCREENING EXAM: US AAA SCREENING CLINICAL HISTORY: hx of smoking,screening for aaa COMPARISON: No exams were available for comparison FINDINGS: Abdominal Aorta: Proximal: 2.8 cm Mid: 2.8 cm Distal: 2.3 cm Iliacs: Right: 1.6 cm Left: 1.4 cm IMPRESSION: Mildly ectatic abdominal aorta with maximal dimension of 2.8 cm proximally. DATA REPOSITORY:
== END 2022-06-16 02:28 ==
LOC: DI 02:08
PROVIDERS: PCP Nurse Practitioner Family; Visit Provider Family Medicine
DX: Z12.2 Encounter for screening for malignant neoplasm of respiratory organs (principal); F17.210 Nicotine dependence, cigarettes, uncomplicated; J98.4 Other disorders of lung; I77.811 Abdominal aortic ectasia; Z13.6 Encounter for screening for cardiovascular disorders
CPT/HCPCS: 71271; 76706; 93005; 99213

== ENCOUNTER 2022-06-16 09:04 | Outpatient (CLI) | payer MEDICARE, SELFPAY ==
--- NOTE | 2022-06-16 09:00 | RT.EKG_ITS ---
APPROVED REPORT Exam: Resting ECG Reason for Exam: palpitations Patient Location: O HR:57 bpm ECG Measurements Heart Rate 57 AXIS AK 152 P 59 QRSd 129 QRS 9 QT 441 T 48 QTc 430 Conclusion Sinus rhythm...normal P axis, V-rate 50- 99 Early R wave transition
== END 2022-06-16 09:05 | disposition home or self-care (01) ==
LOC: DI.CARD 09:05
PROVIDERS: PCP Nurse Practitioner Family; Visit Provider Internal Medicine Cardiovascular Disease
DX: R00.2 Palpitations (principal)
CPT/HCPCS: 93010

== ENCOUNTER 2023-03-27 13:40 | Outpatient (CLI) | payer MEDICARE, SELFPAY ==
[2023-03-27 12:58] LABS: Calculated LDL 108 mg/dL (<100); Cholesterol 181 mg/dL (<200); HDL Cholesterol 50 mg/dL (40-60); Triglyceride 116 mg/dL (<150)
== END 2023-03-27 13:41 | disposition home or self-care (01) ==
LOC: LBO 13:40
PROVIDERS: PCP Nurse Practitioner Family; Visit Provider Nurse Practitioner Family
DX: E78.5 Hyperlipidemia, unspecified (principal)
CPT/HCPCS: 36415; 80061

== ENCOUNTER → 2023-05-13 18:15 | Outpatient (CLI) | payer MEDICARE, SELFPAY ==
--- NOTE | 2023-05-13 11:15 | DI.CT_ITS ---
Exam(s) CT ABDOMEN WO EXAM: CT ABDOMEN WO CLINICAL HISTORY: Rt flank pain, R10.9, +Caceres sign (kidney stone vs gallbladder). TECHNIQUE: Imaging Protocol: Axial computed tomography images with coronal and sagittal reformatted images were created and reviewed CONTRAST MATERIAL: Oral: / no COMPARISON: CT CT THORAX CTA from 08/19/2019 FINDINGS: Lung Bases: Unremarkable. The heart is enlarged. Mild coronary artery calcifications. Tiny hiatal hernia. Liver: Normal density. No suspicious mass. Gallbladder and biliary tract: No radiodense calculus. No biliary dilation. Nowall thickening. Pancreas: No abnormal calcifications or inflammatory process. Spleen: Normal. Kidneys: Normal size, contour and axis. No radiodense stones. No obstructive uropathy. No suspiciou s masses seen. Adrenal glands: No masses seen. Bowel: No gastric or small bowel distension. Diverticulosis noted of descending colon. Abdominal Aorta: Abdominal portion non-dilated. Moderate atherosclerotic changes in the abdominal p ortion. Bones:Mild degenerative changes in the spine. No fracture. No lytic or blastic lesion. Lymph nodes: No evidence of adenopathy. Soft tissues: Tiny amount of fat at the umbilicus. IMPRESSION: Gallbladder is unremarkable on this noncontrast exam. No evidence of renal calculi Diverticulosis without evidence of diverticulitis. RADIATION DOSE DELIVERED: 445.94mGy.cm Total DLP DATA REPOSITORY: All CT scans at this facility are submitted to the National Radiology Data Registry (NRDR) Dose Index Registry (DIR) with the [employer] (ACR). RADIATION OPTIMIZATION: All CT scans at this facility use at least one of these dose optimization te chniques: automated exposure control; mA and/or kV adjustment per patient size (includes targeted exa ms where dose is matched to clinical indication); or iterative reconstruction.
== END ==
PROVIDERS: PCP Nurse Practitioner Family; Visit Provider Nurse Practitioner Family
DX: K57.31 Diverticulosis of large intestine without perforation or abscess with bleeding
CPT/HCPCS: 74150

== ENCOUNTER → 2023-10-26 04:06 | Outpatient (CLI) | payer MEDICARE, SELFPAY ==
--- NOTE | 2023-10-26 14:00 | DI.US_ITS ---
APPROVED REPORT EXAM: Comprehensive 2D, Doppler, and color-flow Echocardiogram Patient Location: Out-Patient Processing Spec: Amber Herrera RDCS (AE) Indications: Dilation of thoracic aorta, Other Information Study Quality: Adequate Conclusion Normal left ventricular wall thickness and chamber size. EF is 55-60 %. Wall motion is normal Normal right ventricular size and function Both atria are normal in size There is no structural or hemodynamically significant valvular disease Ascending aorta measures 4.3 cm Wall motion Left Ventricle The left ventricle is normal size. The left ventricular systolic function is normal. The left ventric ular ejection fraction is within the normal range. There is normal left ventricular wall thickness. T here is normal LV segmental wall motion. There is no ventricular septal defect visualized. LVEF is 57 %. Right Ventricle The right ventricle is normal size. The right ventricular systolic function is normal. Atria The left atrium size is normal. The right atrium size is normal. The interatrial septum is intact wit h no evidence for an atrial septal defect. Aortic Valve The aortic valve is normal in structure. Aortic valve is trileaflet. There is no aortic valvular sten osis. No aortic regurgitation is present. Mitral Valve The mitral valve is normal in structure. No evidence of mitral valve stenosis. Trace mitral regurgita tion. Tricuspid Valve The tricuspid valve is normal in structure. There is no tricuspid valve stenosis. Trace tricuspid reg urgitation. Unable to assess PA pressure. Pulmonic Valve The pulmonary valve is normal in structure. There is no pulmonic valvular stenosis. Trace pulmonic re gurgitation. Great Vessels The aortic root is normal in size. The ascending aorta is moderately dilated. Aortic arch is normal i n caliber. IVC is normal in size and collapses >50% with inspiration. Pericardium There is no pericardial effusion. 2D Dimensions IVSD d PLAX 1.03 cm M: 0.6-1.2 Ao Root d 3.09 cm M: 3.1 - 3.7 LVPW d PLAX 1.04 cm M: 0.6 - 1.2 Ao Asc Diam d 4.30 cm M: 2.6 - 3.4 LVID d PLAX 5.42 cm M: 4.2 - 5.8 LVDs 3.68 cm M: 2.5 - 4.0 LV EF Teichholz 59.7 % FS 32.07 % LV EDV (Teich) 142.5 mL LV ESV (Teich) 57.5 mL M-Mode TAPSE 2.31 cm (M/F) >1.7 Auto EF LV EDV A4C 124.5 mL LV EDV A2C 150.9 mL LV EDV BP 137.2 mL LV ESV A4C 52.5 mL LV ESV A2C 63.2 mL LV ESV BP 58.5 mL LVEF(%) A4C 57.8 % LVEF(%) A2C 58.1 % LVEF(%) BP 57.4 % LV SV A4C 72.0 ml LV SV A2C 87.7 ml LV SV BP 78.7 ml LV CO A4C 3.1 L/min LV CO A2C 3.9 L/min LV CO BP 3.5 L/min HR A4C 42.51 BPM HR A2C 44.06 BPM LV EDV Index (BP) LV Strain Long Pk Overal Avg (s) 17.44 LA Volume LA Length A4C 4.8 cm LA Length A2C 5.4 cm LA Area A4C s 17.50 cm2 LA Area A2C s 18.47 cm2 LA Vol A4C A-L 53.66 mL LA Vol A2C A-L 53.74 mL LA Vol Biplane A-L 56.7 mL LA Vol/BSA A4C A-L LA Vol/BSA A2C A-L LA Vol/BSA BP A-L 28.8 mL/m2 LA Vol A4C MOD 49.7 mL LA Vol A2C MOD 50.6 mL LA Vol BP MOD 52.1 mL RA Volume RA Area A4C 16.2 cm2 RA ESV A4C (A-L) 42.9mL RA Vol/BSA A4C A-L RA Length A4C 5.2 cm RA ESV A4C (MOD) 39.4mL LV Diastology MV E' medial 0.056 (>0.07 m/s) MV E Vmax 0.52 (0.4-1.3 m/s) MV E/E' MED 9.32 (<14) MV A Vmax 0.80 (0.4-1.3 m/s) MV E' lateral 0.092 (>0.1 m/s) E/A Ratio 0.6 MV E/E' LAT 5.63 (<14) MV E' Average 0.074 m/s MV E/E'(average) 7.02 Aortic Valve AoV Vmax 1.40 m/s LVOT Vmax 1.15 m/s AoV Peak Grad 7.9 mmHg LVOT Peak Grad 5.3 mmHg AoV Area (Vmax) 2.60 cm2 LVOT VTI 0.266 m AoV VTI 0.338 m LVOT Mean Grad 2.4 mmHg AoV Mean Elbert. 0.90 m/s LVOT SV 84.57 mL AoV Mean Grad 3.8 mmHg LVOT Diam s 2.00 cm AoV Area (VTI) 2.50 cm2 Velocity Ratio 0.82 Mitral Valve MV DT 210 (160-240 msec) MV Vmax TIPS 0.70 m/s MV Mean Grad 0.4 (<2mmHg) MV VTI 0.281 m Pulmonary Valve PV Vmax 0.98 (0.5-1.5 m/s) RVOT Vmax 0.63 m/s PV Peak Grad 3.8 mmHg RVOT Peak Gr. 1.6 mmHg PV Mean Elbert 0.63 m/s RVOT VTI 0.160 m PV Mean Grad 1.9 mmHg RVOT Mean Gr. 0.8 mmHg Tricuspid Valve RA Pressure 3.00 mmHg TV S' 0.14 m/s
== END ==
PROVIDERS: PCP Nurse Practitioner Family; Visit Provider Internal Medicine Cardiovascular Disease
DX: I77.810 Thoracic aortic ectasia (principal)
CPT/HCPCS: 93306

== ENCOUNTER → 2023-12-15 09:24 | Outpatient (BNVA) | payer MEDICARE, SELFPAY | PROVIDERS: PCP Nurse Practitioner Family; Referring Provider Nurse Practitioner Family; Visit Provider Internal Medicine Cardiovascular Disease | DX: I77.810 Thoracic aortic ectasia (principal) | CPT/HCPCS: 99213 ==

== ENCOUNTER 2024-03-17 02:39 | Outpatient (CLI) | payer MEDICARE, SELFPAY ==
[2024-03-17 11:07] LABS: Calculated LDL 100 mg/dL (<100); Cholesterol 177 mg/dL (<200); HDL Cholesterol 49 mg/dL (40-60); Triglyceride 141 mg/dL (<150)
[2024-03-17 20:35] LABS: PSA, Screening 2.1 ng/mL (<=6.5)
== END 2024-03-17 02:40 | disposition home or self-care (01) ==
LOC: LBO 02:39
PROVIDERS: PCP Nurse Practitioner Family; Visit Provider Nurse Practitioner Family
DX: Z13.6 Encounter for screening for cardiovascular disorders (principal); Z12.5 Encounter for screening for malignant neoplasm of prostate
CPT/HCPCS: 36415; 80061; 84153

== ENCOUNTER 2024-12-16 10:23 | Outpatient (CLI) | payer MEDICARE, SELFPAY ==
[2024-12-16 18:18] LABS: PSA, Screening 1.5 ng/mL (<=6.5)
== END 2024-12-16 10:24 | disposition home or self-care (01) ==
PROVIDERS: PCP Nurse Practitioner Family; Referring Provider Nurse Practitioner Family; Visit Provider Nurse Practitioner Family
DX: Z12.5 Encounter for screening for malignant neoplasm of prostate (principal)
CPT/HCPCS: 36415; 84153